=== PATIENT | male | born 1940 | race Caucasian/White ===

== ENCOUNTER 2019-03-24 14:40 | Inpatient (IN) | payer MEDICARE ==
[2019-03-24] MEDS ORDERED: Acetaminophen 325 MG TAB PO PRN (17:11)
[2019-03-24 19:40] LABS: Hemoglobin 14.2 g/dL (14.0-18.0); Platelet Count 307 thou/uL (130-400)
[2019-03-24] MEDS: Famotidine 20 MG TAB PO SCH (21:44)
[2019-03-24] MEDS: Isosorbide Mononitrate 20 MG TAB PO SCH (21:44)
[2019-03-25 05:58] LABS: Hemoglobin 14.1 g/dL (14.0-18.0); Platelet Count 320 thou/uL (130-400)
[2019-03-25 06:01] LABS: INR-International Normal Ratio 2.1; Prothrombin Time 23.4 SEC (12.0-14.7)
[2019-03-25] MEDS: Lisinopril 20 MG TAB PO SCH (09:09)
[2019-03-25] MEDS: Senokot S 8.6-50 MG TAB PO SCH (09:09)
[2019-03-25] MEDS: Folic Acid 1 MG TAB PO SCH (09:09)
[2019-03-25] MEDS: Cyanocobalamin (Vitamin B-12) 1,000 MCG TAB PO SCH (09:09)
[2019-03-25] MEDS: Isosorbide Mononitrate 20 MG TAB PO SCH ×2 (09:10→20:31)
[2019-03-25] MEDS: Famotidine 20 MG TAB PO SCH ×2 (09:11→20:31)
[2019-03-25] MEDS: Warfarin Sodium 7.5 MG TAB PO SCH (18:19)
[2019-03-26 06:08] LABS: INR-International Normal Ratio 2.1; Prothrombin Time 23.4 SEC (12.0-14.7)
[2019-03-26] MEDS: Isosorbide Mononitrate 20 MG TAB PO SCH ×2 (09:17→21:12)
[2019-03-26] MEDS: Folic Acid 1 MG TAB PO SCH (09:18)
[2019-03-26] MEDS: Cyanocobalamin (Vitamin B-12) 1,000 MCG TAB PO SCH (09:18)
[2019-03-26] MEDS: Lisinopril 20 MG TAB PO SCH (09:18)
[2019-03-26] MEDS: Senokot S 8.6-50 MG TAB PO SCH (09:18)
[2019-03-26] MEDS: Famotidine 20 MG TAB PO SCH ×2 (09:18→21:13)
[2019-03-26] MEDS: Warfarin Sodium 7.5 MG TAB PO SCH (17:02)
[2019-03-27 05:52] LABS: Hemoglobin 15.3 g/dL (14.0-18.0); Platelet Count 362 thou/uL (130-400)
[2019-03-27 05:53] LABS: INR-International Normal Ratio 2.4; Prothrombin Time 25.8 SEC (12.0-14.7)
[2019-03-27] MEDS: Isosorbide Mononitrate 20 MG TAB PO SCH ×2 (08:50→20:31)
[2019-03-27] MEDS: Lisinopril 20 MG TAB PO SCH (08:51)
[2019-03-27] MEDS: Folic Acid 1 MG TAB PO SCH (08:51)
[2019-03-27] MEDS: Cyanocobalamin (Vitamin B-12) 1,000 MCG TAB PO SCH (08:51)
[2019-03-27] MEDS: Senokot S 8.6-50 MG TAB PO SCH (08:52)
[2019-03-27] MEDS: Famotidine 20 MG TAB PO SCH ×2 (08:52→20:31)
[2019-03-27] MEDS: Warfarin Sodium 5 MG TAB PO SCH (17:04)
[2019-03-28 06:35] LABS: #Basophils 0.1 thou/uL (0.0-0.2); #Eosinphils 0.7 thou/uL (0.0-0.7); #Lymphocytes 2.2 thou/uL (1.20-3.40); #Monocytes 0.8 thou/uL (0.11-0.59); #Neutrophils 6.2 thou/uL (1.40-6.50); %Basophils 1.1 % (0.0-1.0); %Eosinophils 7.1 % (0.0-10.0); %Lymphocytes 22.2 % (21.0-51.0); %Monocytes 7.9 % (0.0-10.0); %Neutrophils 61.7 % (42.0-75.0); Hemoglobin 14.3 g/dL (14.0-18.0); Mean Corpuscular HGB CONC 31.1 g/dL (32.0-36.0); Mean Corpuscular Hemoglobin 28.8 pg (27.0-31.0); Mean Corpuscular Volume 92.8 fL (78.0-98.0); Mean Platelet Volume 7.1 fL (7.4-10.4); Platelet Count 340 thou/uL (130-400); RBC Distribution Width 15.8 % (11.5-14.5); Red Blood Cell (RBC) Count 4.97 mill/uL (4.70-6.10); White Blood Cell (WBC) Count 10.1 thou/uL (4.8-10.8)
[2019-03-28 06:36] LABS: INR-International Normal Ratio 2.8; Prothrombin Time 29.5 SEC (12.0-14.7)
[2019-03-28] MEDS: Senokot S 8.6-50 MG TAB PO SCH (09:32)
[2019-03-28] MEDS: Lisinopril 20 MG TAB PO SCH (09:32)
[2019-03-28] MEDS: Isosorbide Mononitrate 20 MG TAB PO SCH ×2 (09:32→21:01)
[2019-03-28] MEDS: Famotidine 20 MG TAB PO SCH ×2 (09:33→21:01)
[2019-03-28] MEDS: Cyanocobalamin (Vitamin B-12) 1,000 MCG TAB PO SCH (09:33)
[2019-03-28] MEDS: Folic Acid 1 MG TAB PO SCH (09:34)
[2019-03-28] MEDS: Warfarin Sodium 5 MG TAB PO SCH (18:39)
[2019-03-29 05:45] LABS: Hemoglobin 13.6 g/dL (14.0-18.0); Platelet Count 276 thou/uL (130-400)
[2019-03-29 05:49] LABS: INR-International Normal Ratio 3.1; Prothrombin Time 31.4 SEC (12.0-14.7)
[2019-03-29 05:51] LABS: Anion Gap 15 mmol/L (10-20); BUN (Urea Nitrogen) 17 mg/dL (8.4-25.7); Calc. Creatinine Clearance 95 mL/min (70-130); Calcium 9.2 mg/dL (7.8-10.44); Carbon Dioxide 26 mmol/L (23-31); Chloride 103 mmol/L (98-107); Estimated GFR-MDRD 85; Glucose 111 mg/dL (83-110); Potassium 4.4 mmol/L (3.5-5.1); Sodium 140 mmol/L (136-145)
[2019-03-29] MEDS: Isosorbide Mononitrate 20 MG TAB PO SCH ×2 (08:46→21:40)
[2019-03-29] MEDS: Lisinopril 20 MG TAB PO SCH (08:47)
[2019-03-29] MEDS: Folic Acid 1 MG TAB PO SCH (08:47)
[2019-03-29] MEDS: Senokot S 8.6-50 MG TAB PO SCH (08:47)
[2019-03-29] MEDS: Famotidine 20 MG TAB PO SCH ×2 (08:47→21:40)
[2019-03-29] MEDS: Cyanocobalamin (Vitamin B-12) 1,000 MCG TAB PO SCH (08:48)
[2019-03-30 05:47] LABS: INR-International Normal Ratio 3.2; Prothrombin Time 32.1 SEC (12.0-14.7)
[2019-03-30] MEDS: Folic Acid 1 MG TAB PO SCH (09:14)
[2019-03-30] MEDS: Isosorbide Mononitrate 20 MG TAB PO SCH ×2 (09:14→21:43)
[2019-03-30] MEDS: Lisinopril 20 MG TAB PO SCH (09:15)
[2019-03-30] MEDS: Famotidine 20 MG TAB PO SCH ×2 (09:15→21:43)
[2019-03-30] MEDS: Cyanocobalamin (Vitamin B-12) 1,000 MCG TAB PO SCH (09:16)
[2019-03-30] MEDS: Senokot S 8.6-50 MG TAB PO SCH (09:16)
[2019-03-30] MEDS ORDERED: Warfarin Sodium 5 MG TAB PO SCH (17:00)
[2019-03-31 04:23] LABS: Hemoglobin 14.2 g/dL (14.0-18.0); Platelet Count 317 thou/uL (130-400)
[2019-03-31 04:27] LABS: INR-International Normal Ratio 2.5; Prothrombin Time 26.7 SEC (12.0-14.7)
[2019-03-31] MEDS: Senokot S 8.6-50 MG TAB PO SCH (07:44)
[2019-03-31] MEDS: Cyanocobalamin (Vitamin B-12) 1,000 MCG TAB PO SCH (07:45)
[2019-03-31] MEDS: Folic Acid 1 MG TAB PO SCH (07:45)
[2019-03-31] MEDS: Lisinopril 20 MG TAB PO SCH (07:45)
[2019-03-31] MEDS: Isosorbide Mononitrate 20 MG TAB PO SCH ×2 (07:46→20:35)
[2019-03-31] MEDS: Famotidine 20 MG TAB PO SCH ×2 (07:47→20:35)
[2019-03-31] MEDS: Warfarin Sodium 5 MG TAB PO SCH ×3 (17:16→17:56)
[2019-03-31] MEDS: VASCEPA PO SCH (20:36)
[2019-04-01 04:35] LABS: INR-International Normal Ratio 2.2; Prothrombin Time 24.5 SEC (12.0-14.7)
[2019-04-01] MEDS: Isosorbide Mononitrate 20 MG TAB PO SCH ×2 (08:53→21:50)
[2019-04-01] MEDS: Folic Acid 1 MG TAB PO SCH (08:54)
[2019-04-01] MEDS: Senokot S 8.6-50 MG TAB PO SCH (08:54)
[2019-04-01] MEDS: Famotidine 20 MG TAB PO SCH ×2 (08:54→21:51)
[2019-04-01] MEDS: Lisinopril 20 MG TAB PO SCH (08:54)
[2019-04-01] MEDS: Cyanocobalamin (Vitamin B-12) 1,000 MCG TAB PO SCH (08:54)
[2019-04-01] MEDS: Warfarin Sodium 5 MG TAB PO SCH (16:30)
[2019-04-01] MEDS: VASCEPA PO SCH (21:51)
[2019-04-02 04:58] LABS: Hemoglobin 12.9 g/dL (14.0-18.0); Platelet Count 326 thou/uL (130-400)
[2019-04-02 05:03] LABS: INR-International Normal Ratio 2.4; Prothrombin Time 26.2 SEC (12.0-14.7)
[2019-04-02] MEDS: Folic Acid 1 MG TAB PO SCH (08:47)
[2019-04-02] MEDS: Cyanocobalamin (Vitamin B-12) 1,000 MCG TAB PO SCH (08:48)
[2019-04-02] MEDS: Isosorbide Mononitrate 20 MG TAB PO SCH ×2 (08:48→21:20)
[2019-04-02] MEDS: Senokot S 8.6-50 MG TAB PO SCH (08:49)
[2019-04-02] MEDS: Lisinopril 20 MG TAB PO SCH (08:49)
[2019-04-02] MEDS: Famotidine 20 MG TAB PO SCH ×2 (08:49→21:20)
[2019-04-02] MEDS: VASCEPA PO SCH ×2 (08:51→21:21)
[2019-04-02] MEDS: Warfarin Sodium 5 MG TAB PO SCH (16:46)
[2019-04-03] MEDS: Senokot S 8.6-50 MG TAB PO SCH (09:03)
[2019-04-03] MEDS: VASCEPA PO SCH ×2 (09:03→21:23)
[2019-04-03] MEDS: Cyanocobalamin (Vitamin B-12) 1,000 MCG TAB PO SCH (09:04)
[2019-04-03] MEDS: Folic Acid 1 MG TAB PO SCH (09:04)
[2019-04-03] MEDS: Isosorbide Mononitrate 20 MG TAB PO SCH ×2 (09:04→21:23)
[2019-04-03] MEDS: Lisinopril 20 MG TAB PO SCH (09:04)
[2019-04-03] MEDS: Famotidine 20 MG TAB PO SCH ×2 (09:06→21:23)
[2019-04-03] MEDS: Warfarin Sodium 5 MG TAB PO SCH (17:45)
[2019-04-04 04:41] LABS: Platelet Count 314 thou/uL (130-400)
[2019-04-04 04:42] LABS: INR-International Normal Ratio 2.5
[2019-04-04] MEDS: Isosorbide Mononitrate 20 MG TAB PO SCH ×2 (09:05→21:34)
[2019-04-04] MEDS: Senokot S 8.6-50 MG TAB PO SCH (09:06)
[2019-04-04] MEDS: Folic Acid 1 MG TAB PO SCH (09:07)
[2019-04-04] MEDS: Lisinopril 20 MG TAB PO SCH (09:07)
[2019-04-04] MEDS: Famotidine 20 MG TAB PO SCH ×2 (09:07→21:34)
[2019-04-04] MEDS: Cyanocobalamin (Vitamin B-12) 1,000 MCG TAB PO SCH (09:08)
[2019-04-04] MEDS: VASCEPA PO SCH ×2 (09:10→21:34)
[2019-04-04] MEDS: Warfarin Sodium 5 MG TAB PO SCH (16:42)
[2019-04-05 04:46] LABS: INR-International Normal Ratio 2.7; Prothrombin Time 28.5 SEC (12.0-14.7)
[2019-04-05 04:52] LABS: Anion Gap 13 mmol/L (10-20); BUN (Urea Nitrogen) 14 mg/dL (8.4-25.7); Calc. Creatinine Clearance 98 mL/min (70-130); Calcium 8.9 mg/dL (7.8-10.44); Carbon Dioxide 27 mmol/L (23-31); Chloride 101 mmol/L (98-107); Estimated GFR-MDRD 86; Glucose 114 mg/dL (83-110); Potassium 4.5 mmol/L (3.5-5.1); Sodium 136 mmol/L (136-145)
[2019-04-05] MEDS: Folic Acid 1 MG TAB PO SCH (09:19)
[2019-04-05] MEDS: Cyanocobalamin (Vitamin B-12) 1,000 MCG TAB PO SCH (09:19)
[2019-04-05] MEDS: Lisinopril 20 MG TAB PO SCH (09:20)
[2019-04-05] MEDS: Senokot S 8.6-50 MG TAB PO SCH (09:20)
[2019-04-05] MEDS: Famotidine 20 MG TAB PO SCH ×2 (09:21→20:43)
[2019-04-05] MEDS: Isosorbide Mononitrate 20 MG TAB PO SCH ×2 (09:21→20:43)
[2019-04-05] MEDS: VASCEPA PO SCH ×2 (09:23→20:42)
[2019-04-05 10:04] VITALS: BMI 29.3
[2019-04-05] MEDS: Warfarin Sodium 5 MG TAB PO SCH (16:30)
[2019-04-06 05:42] LABS: Hemoglobin 13.1 g/dL (14.0-18.0); Platelet Count 348 thou/uL (130-400)
[2019-04-06] MEDS: Isosorbide Mononitrate 20 MG TAB PO SCH (08:41)
[2019-04-06] MEDS: Folic Acid 1 MG TAB PO SCH (08:42)
[2019-04-06] MEDS: Cyanocobalamin (Vitamin B-12) 1,000 MCG TAB PO SCH (08:42)
[2019-04-06] MEDS: Lisinopril 20 MG TAB PO SCH (08:42)
[2019-04-06] MEDS: Famotidine 20 MG TAB PO SCH (08:42)
[2019-04-06] MEDS: Senokot S 8.6-50 MG TAB PO SCH (08:42)
[2019-04-06] MEDS: VASCEPA PO SCH (08:45)
[2019-04-06 10:44] LABS: INR-International Normal Ratio 2.4; Prothrombin Time 27.3 SEC (12.0-14.7)
--- NOTE | 2019-04-06 13:37 | DIS ---
DATE OF ADMISSION: 03/24/2019 DATE OF DISCHARGE: 04/06/2019 ADMISSION DIAGNOSES: Physical deconditioning and sacral pressure ulcer. SECONDARY DIAGNOSES: Atrial fibrillation, chronic diastolic heart failure, hypertension, and vitamin B12 deficiency. PROCEDURES: Routine wound care and working with Physical Therapy and Occupational Therapy. HOSPITAL COURSE: A 79-year-old male transitioned to [facility] as a swing patient to participate with physical therapy and occupational therapy and receive wound care status post admission at [facility] in [place], where he presented and was treated for toxic metabolic encephalopathy, rhabdomyolysis, and sacral pressure ulcer after he had been down at home in his bathtub for approximately 24 hours. Apparently, the patient had been too weak to get out of his bathtub and fortunately some religious members came to check on him and called EMS for further care. The patient had been without his medications for approximately 24 hours and thus he was notably tachycardic in relation to his history of a chronic atrial fibrillation. He was initially provided with a Cardizem drip and transitioned thereafter to his usual p.o. medications. He received intravenous fluids to correct his rhabdomyolysis. After stabilization, he was transitioned here for further PT, OT and wound care. During his stay here, he had no significant setbacks. His wound has steadily improved as has his functional status in regard to his physical deconditioning. His vital signs and lab work have all been stable. He has met the goals set by PT and OT to be able to return home at this time with further transition of care to be provided by [facility]. During his stay, it was noted that he did have some mild sundowning overnight and urinary incontinence. Secondary to this and his living alone, he was offered to transition to a longterm facility. However, he declined this option. DISPOSITION: The patient will discharge home where he does live alone, but has looked after by community members. He will have [facility] for further PT and wound therapy. He may follow up with his primary care provider, Steffany Grant PA-C, next week. DISCHARGE MEDICATIONS: 1. Vitamin B12 1000 mcg p.o. daily. 2. Tylenol p.r.n. 3. Isosorbide mononitrate 10 mg b.i.d. 4. Folic acid 1 mg daily. 5. Senokot/docusate one tab daily. 6. Lisinopril 20 mg daily. 7. Coumadin 5 mg Wednesday through Wednesday, 7.5 mg Wednesday and Wednesday. 8. CPAP as directed per his tractor sweeper operator, Dr. Fraire. Job ID: [id number]
[2019-04-06 17:15] VITALS: BP 114/67; TEMP 98.1
== END 2019-04-06 17:30 | disposition home health service (06) | DRG 558 ==
LOC: BURMED 14:40
PROVIDERS: ADMIT Family Medicine; ATTEND Family Medicine
DX: M62.82 Rhabdomyolysis (principal); I50.32 Chronic diastolic (congestive) heart failure; F05 Delirium due to known physiological condition; R53.81 Other malaise; L89.159 Pressure ulcer of sacral region, unspecified stage; I11.0 Hypertensive heart disease with heart failure; E53.8 Deficiency of other specified B group vitamins; I48.2 Chronic atrial fibrillation; F17.210 Nicotine dependence, cigarettes, uncomplicated; R32 Unspecified urinary incontinence; Z90.49 Acquired absence of other specified parts of digestive tract; Z90.89 Acquired absence of other organs; Z88.0 Allergy status to penicillin; Z79.01 Long term (current) use of anticoagulants
CPT/HCPCS: 36415; 80048; 85014; 85018; 85025; 85049; 85610

== ENCOUNTER 2019-04-28 15:50 | Inpatient (IN) | payer MEDICARE ==
[2019-04-28] MEDS: Famotidine 20 MG TAB PO SCH (22:31)
[2019-04-28] MEDS: Lisinopril 20 MG TAB PO SCH (22:31)
[2019-04-28] MEDS: Simvastatin 40 MG TAB PO SCH (22:31)
[2019-04-29] MEDS ORDERED: Prevnar 13-Val Conj/PF 0.5 ML SYRINGE IM ONE (09:00)
[2019-04-29] MEDS: Aspirin Chewable 81 MG TAB PO SCH (09:46)
[2019-04-29] MEDS: Isosorbide Mononitrate (ER) 30 MG TAB PO SCH (09:47)
[2019-04-29] MEDS: Lisinopril 20 MG TAB PO SCH ×2 (09:47→21:34)
[2019-04-29] MEDS: Cyanocobalamin (Vitamin B-12) 1,000 MCG TAB PO SCH (09:47)
[2019-04-29] MEDS: Hydrochlorothiazide 25 MG TAB PO SCH (09:47)
[2019-04-29] MEDS: Famotidine 20 MG TAB PO SCH ×2 (09:48→21:34)
[2019-04-29] MEDS: Folic Acid 1 MG TAB PO SCH (09:50)
[2019-04-29] MEDS ORDERED: HYDROcodone/Acetaminophen 5/325 mg Tablet PO PRN (10:27)
[2019-04-29] MEDS ORDERED: HYDROcodone/Acetaminophen 10/325 mg Tablet PO PRN (10:28)
[2019-04-29] MEDS: Vancomycin HCl 750 MG in Sodium Chloride 0.9% 250 ML 250 ML IVPB SCH ×2 (12:47→12:53)
[2019-04-29] MEDS: Warfarin Sodium 5 MG TAB PO SCH (17:25)
[2019-04-29] MEDS: Simvastatin 40 MG TAB PO SCH (21:33)
[2019-04-29] MEDS: Saccharomyces boulardii 250 MG CAP PO SCH (21:33)
[2019-04-30 07:09] LABS: INR-International Normal Ratio 1.2; Prothrombin Time 15.1 SEC (12.0-14.7)
[2019-04-30] MEDS: Famotidine 20 MG TAB PO SCH ×2 (09:38→20:21)
[2019-04-30] MEDS: Hydrochlorothiazide 25 MG TAB PO SCH (09:38)
[2019-04-30] MEDS: Lisinopril 20 MG TAB PO SCH ×2 (09:38→20:20)
[2019-04-30] MEDS: Isosorbide Mononitrate (ER) 30 MG TAB PO SCH (09:39)
[2019-04-30] MEDS: Folic Acid 1 MG TAB PO SCH (09:39)
[2019-04-30] MEDS: Aspirin Chewable 81 MG TAB PO SCH (09:39)
[2019-04-30] MEDS: Cyanocobalamin (Vitamin B-12) 1,000 MCG TAB PO SCH (09:39)
[2019-04-30] MEDS: Saccharomyces boulardii 250 MG CAP PO SCH ×2 (09:39→20:21)
[2019-04-30] MEDS: Vancomycin HCl 750 MG in Sodium Chloride 0.9% 250 ML 250 ML IVPB SCH ×2 (11:36→11:38)
[2019-04-30] MEDS: Warfarin Sodium 5 MG TAB PO SCH (17:11)
[2019-04-30] MEDS ORDERED: Warfarin Sodium 5 MG TAB PO SCH (19:00)
[2019-04-30] MEDS: Simvastatin 40 MG TAB PO SCH (20:21)
[2019-05-01 05:16] LABS: INR-International Normal Ratio 1.1; Prothrombin Time 14.4 SEC (12.0-14.7)
[2019-05-01] MEDS: Famotidine 20 MG TAB PO SCH ×2 (09:25→20:20)
[2019-05-01] MEDS: Folic Acid 1 MG TAB PO SCH (09:25)
[2019-05-01] MEDS: Docusate 100 MG CAP PO PRN (09:26)
[2019-05-01] MEDS: Isosorbide Mononitrate (ER) 30 MG TAB PO SCH (09:26)
[2019-05-01] MEDS: Saccharomyces boulardii 250 MG CAP PO SCH ×2 (09:26→20:20)
[2019-05-01] MEDS: Lisinopril 20 MG TAB PO SCH ×2 (09:26→20:21)
[2019-05-01] MEDS: Hydrochlorothiazide 25 MG TAB PO SCH (09:26)
[2019-05-01] MEDS: Cyanocobalamin (Vitamin B-12) 1,000 MCG TAB PO SCH (09:26)
[2019-05-01] MEDS: Aspirin Chewable 81 MG TAB PO SCH (09:26)
[2019-05-01 11:37] LABS: Vancomycin, Trough 18.4 ug/mL
[2019-05-01] MEDS: Vancomycin HCl 750 MG in Sodium Chloride 0.9% 250 ML 250 ML IVPB SCH ×2 (11:48→11:49)
[2019-05-01] MEDS ORDERED: Warfarin Sodium 2.5 MG TAB PO SCH (17:00)
[2019-05-01] MEDS: Warfarin Sodium 5 MG TAB PO SCH (17:03)
[2019-05-01] MEDS: Simvastatin 40 MG TAB PO SCH (20:20)
[2019-05-02 05:46] LABS: INR-International Normal Ratio 1.4; Prothrombin Time 17.3 SEC (12.0-14.7)
[2019-05-02] MEDS: Isosorbide Mononitrate (ER) 30 MG TAB PO SCH (08:58)
[2019-05-02] MEDS: Famotidine 20 MG TAB PO SCH ×2 (08:59→20:36)
[2019-05-02] MEDS: Hydrochlorothiazide 25 MG TAB PO SCH (08:59)
[2019-05-02] MEDS: Cyanocobalamin (Vitamin B-12) 1,000 MCG TAB PO SCH (08:59)
[2019-05-02] MEDS: Aspirin Chewable 81 MG TAB PO SCH (08:59)
[2019-05-02] MEDS: Saccharomyces boulardii 250 MG CAP PO SCH ×2 (08:59→20:36)
[2019-05-02] MEDS: Folic Acid 1 MG TAB PO SCH (08:59)
[2019-05-02] MEDS: Lisinopril 20 MG TAB PO SCH ×2 (08:59→20:37)
[2019-05-02] MEDS: Vancomycin HCl 750 MG in Sodium Chloride 0.9% 250 ML 250 ML IVPB SCH (11:37)
[2019-05-02] MEDS ORDERED: Pharmacy to Dose 1 EACH VANCOMYCIN IVPB PRN (14:40)
[2019-05-02] MEDS: Warfarin Sodium 5 MG TAB PO SCH (17:11)
[2019-05-02] MEDS: Simvastatin 40 MG TAB PO SCH (20:37)
[2019-05-02] MEDS ORDERED: Acetaminophen 325 MG TAB PO PRN (21:59)
[2019-05-03 05:21] LABS: ALT (SGPT) 18 U/L (8-55); AST (SGOT) 26 U/L (5-34); Albumin 3.3 g/dL (3.4-4.8); Alkaline Phosphatase 76 U/L (40-150); Anion Gap 15 mmol/L (10-20); BUN (Urea Nitrogen) 27 mg/dL (8.4-25.7); Bilirubin, Total Less than 0.2 mg/dL (0.2-1.2); Calc. Creatinine Clearance 94 mL/min (70-130); Calcium 9.5 mg/dL (7.8-10.44); Carbon Dioxide 26 mmol/L (23-31); Chloride 99 mmol/L (98-107); Estimated GFR-MDRD 87; Globulin 4.5 g/dL (2.4-3.5); Glucose 101 mg/dL (83-110); INR-International Normal Ratio 1.8; Potassium 3.9 mmol/L (3.5-5.1); Protein, Total 7.8 g/dL (5.8-8.1); Prothrombin Time 20.5 SEC (12.0-14.7); Sodium 136 mmol/L (136-145)
[2019-05-03 06:06] LABS: Anisocytosis SLIGHT = 6-15 cells (100X) (0-5/hpf); Band 3 % (5-11); Eosinophils 3 % (0-10); Hemoglobin 14.5 g/dL (14.0-18.0); Lymphocytes 24 % (21-51); MDiff Complete? YES; Mean Corpuscular HGB CONC 32.4 g/dL (32.0-36.0); Mean Corpuscular Hemoglobin 28.8 pg (27.0-31.0); Mean Corpuscular Volume 88.8 fL (78.0-98.0); Mean Platelet Volume 6.7 fL (7.4-10.4); Monocytes 6 % (0-10); Neutrophil 64 % (42-75); Platelet Count 350 thou/uL (130-400); Platelet Morphology Comment Appears Adequate; RBC Distribution Width 15.1 % (11.5-14.5); Red Blood Cell (RBC) Count 5.05 mill/uL (4.70-6.10); White Blood Cell (WBC) Count 12.1 thou/uL (4.8-10.8)
[2019-05-03 06:25] LABS: CRP (Inflammatory) 0.86 mg/dL (= or < 0.5)
[2019-05-03] MEDS: Lisinopril 20 MG TAB PO SCH ×2 (08:30→20:48)
[2019-05-03] MEDS: Folic Acid 1 MG TAB PO SCH (08:31)
[2019-05-03] MEDS: Hydrochlorothiazide 25 MG TAB PO SCH (08:31)
[2019-05-03] MEDS: Saccharomyces boulardii 250 MG CAP PO SCH ×2 (08:31→20:47)
[2019-05-03] MEDS: Isosorbide Mononitrate (ER) 30 MG TAB PO SCH (08:32)
[2019-05-03] MEDS: Cyanocobalamin (Vitamin B-12) 1,000 MCG TAB PO SCH (08:32)
[2019-05-03] MEDS: Aspirin Chewable 81 MG TAB PO SCH (08:32)
[2019-05-03] MEDS: Famotidine 20 MG TAB PO SCH ×2 (08:32→20:47)
[2019-05-03] MEDS: Vancomycin HCl 750 MG in Sodium Chloride 0.9% 250 ML 250 ML IVPB SCH (12:25)
[2019-05-03] MEDS: Warfarin Sodium 5 MG TAB PO SCH (17:33)
[2019-05-03] MEDS: Simvastatin 40 MG TAB PO SCH (20:48)
[2019-05-04 06:04] LABS: Prothrombin Time 22.5 SEC (12.0-14.7)
[2019-05-04] MEDS: Saccharomyces boulardii 250 MG CAP PO SCH ×2 (09:14→21:00)
[2019-05-04] MEDS: Hydrochlorothiazide 25 MG TAB PO SCH (09:14)
[2019-05-04] MEDS: Aspirin Chewable 81 MG TAB PO SCH (09:14)
[2019-05-04] MEDS: Isosorbide Mononitrate (ER) 30 MG TAB PO SCH (09:15)
[2019-05-04] MEDS: Lisinopril 20 MG TAB PO SCH ×2 (09:15→21:00)
[2019-05-04] MEDS: Folic Acid 1 MG TAB PO SCH (09:15)
[2019-05-04] MEDS: Famotidine 20 MG TAB PO SCH ×2 (09:16→21:02)
[2019-05-04] MEDS: Cyanocobalamin (Vitamin B-12) 1,000 MCG TAB PO SCH (09:16)
[2019-05-04 11:31] LABS: Vancomycin, Trough 20.2 ug/mL
[2019-05-04] MEDS: Vancomycin HCl 750 MG in Sodium Chloride 0.9% 250 ML 250 ML IVPB SCH ×2 (13:02→13:03)
[2019-05-04] MEDS: Warfarin Sodium 5 MG TAB PO SCH (17:19)
[2019-05-04] MEDS: Simvastatin 40 MG TAB PO SCH (21:01)
[2019-05-05 05:38] LABS: Hemoglobin 12.1 g/dL (14.0-18.0); Platelet Count 311 thou/uL (130-400)
[2019-05-05 05:41] LABS: INR-International Normal Ratio 2.4; Prothrombin Time 25.8 SEC (12.0-14.7)
[2019-05-05] MEDS: Isosorbide Mononitrate (ER) 30 MG TAB PO SCH (09:02)
[2019-05-05] MEDS: Lisinopril 20 MG TAB PO SCH ×2 (09:02→20:45)
[2019-05-05] MEDS: Folic Acid 1 MG TAB PO SCH (09:03)
[2019-05-05] MEDS: Hydrochlorothiazide 25 MG TAB PO SCH (09:03)
[2019-05-05] MEDS: Cyanocobalamin (Vitamin B-12) 1,000 MCG TAB PO SCH (09:03)
[2019-05-05] MEDS: Aspirin Chewable 81 MG TAB PO SCH (09:03)
[2019-05-05] MEDS: Saccharomyces boulardii 250 MG CAP PO SCH ×2 (09:04→20:44)
[2019-05-05] MEDS: Famotidine 20 MG TAB PO SCH ×2 (09:04→20:44)
[2019-05-05] MEDS: Vancomycin HCl 500 MG in Sodium Chloride 0.9% 250 ML 250 ML IVPB SCH (13:39)
[2019-05-05] MEDS: Vancomycin HCl 750 MG in Sodium Chloride 0.9% 250 ML 250 ML IVPB SCH (13:40)
[2019-05-05] MEDS: Warfarin Sodium 5 MG TAB PO SCH (16:52)
[2019-05-05] MEDS: Simvastatin 40 MG TAB PO SCH (20:44)
[2019-05-06 06:00] LABS: INR-International Normal Ratio 2.8; Prothrombin Time 29.1 SEC (12.0-14.7)
[2019-05-06] MEDS: Folic Acid 1 MG TAB PO SCH (08:36)
[2019-05-06] MEDS: Lisinopril 20 MG TAB PO SCH ×2 (08:36→20:39)
[2019-05-06] MEDS: Isosorbide Mononitrate (ER) 30 MG TAB PO SCH (08:43)
[2019-05-06] MEDS: Cyanocobalamin (Vitamin B-12) 1,000 MCG TAB PO SCH (08:43)
[2019-05-06] MEDS: Saccharomyces boulardii 250 MG CAP PO SCH ×2 (08:44→20:40)
[2019-05-06] MEDS: Aspirin Chewable 81 MG TAB PO SCH (08:44)
[2019-05-06] MEDS: Famotidine 20 MG TAB PO SCH ×2 (08:44→20:38)
[2019-05-06] MEDS: Hydrochlorothiazide 25 MG TAB PO SCH (08:44)
[2019-05-06 11:22] LABS: Vancomycin, Trough 15.3 ug/mL
[2019-05-06] MEDS: Vancomycin HCl 500 MG in Sodium Chloride 0.9% 250 ML 250 ML IVPB SCH (12:55)
[2019-05-06] MEDS: Vancomycin HCl 750 MG in Sodium Chloride 0.9% 250 ML 250 ML IVPB SCH (12:55)
[2019-05-06] MEDS: Warfarin Sodium 5 MG TAB PO SCH (19:18)
[2019-05-06] MEDS: Simvastatin 40 MG TAB PO SCH (20:40)
[2019-05-07 05:45] LABS: Hemoglobin 12.9 g/dL (14.0-18.0); Platelet Count 353 thou/uL (130-400)
[2019-05-07 05:46] LABS: INR-International Normal Ratio 2.6; Prothrombin Time 27.8 SEC (12.0-14.7)
[2019-05-07] MEDS: Lisinopril 20 MG TAB PO SCH ×2 (09:05→20:07)
[2019-05-07] MEDS: Aspirin Chewable 81 MG TAB PO SCH (09:05)
[2019-05-07] MEDS: Famotidine 20 MG TAB PO SCH ×2 (09:06→20:07)
[2019-05-07] MEDS: Hydrochlorothiazide 25 MG TAB PO SCH (09:06)
[2019-05-07] MEDS: Saccharomyces boulardii 250 MG CAP PO SCH ×2 (09:06→20:07)
[2019-05-07] MEDS: Isosorbide Mononitrate (ER) 30 MG TAB PO SCH (09:06)
[2019-05-07] MEDS: Folic Acid 1 MG TAB PO SCH (09:06)
[2019-05-07] MEDS: Cyanocobalamin (Vitamin B-12) 1,000 MCG TAB PO SCH (09:07)
[2019-05-07] MEDS: Vancomycin HCl 500 MG in Sodium Chloride 0.9% 250 ML 250 ML IVPB SCH (12:20)
[2019-05-07] MEDS: Vancomycin HCl 750 MG in Sodium Chloride 0.9% 250 ML 250 ML IVPB SCH (12:21)
[2019-05-07] MEDS: Warfarin Sodium 5 MG TAB PO SCH (16:50)
--- NOTE | 2019-05-07 18:32 | HP ---
PRIMARY CARE PHYSICIAN: Dr. Alberto. CHIEF COMPLAINT: Admitted for skilled rehab with negative pressure wound therapy for MRSA sacral decubitus ulcer stage IV, occupational and physical therapy to address physical deconditioning. HISTORY OF PRESENT ILLNESS: The patient's condition started back several months ago when he started having issues with gait and range of motion. Back in March, the patient apparently was found unresponsive in his bathtub by his anglican members apparently he was there for more than 24 hours. EMS was summoned and noticed that he was in atrial fibrillation. At the hospital, he was given Cardizem, his labs showed elevated creatine kinase. He was admitted for rhabdomyolysis, chronic atrial fibrillation with rapid ventricular rate and sepsis secondary to elevated white count and lactic acid. He was given IV antibiotics and fluid resuscitation. He was seen by Cardiology for bradycardia. He was also treated for CHF with volume overload. He was also treated for sacral pressure and subsequently transferred to [facility] for skilled rehab. During his stay, he participated with physical, occupational, and wound therapy. He was discharged home with [facility] on April 06, 2019. According to the patient, over several days, the patient's condition deteriorated, describes progressive weakness, his wound was not healing per [facility] nurse and noticed purulent discharge coming out from the wound. He was advised admission. He was admitted to medical floor with diagnosis of infected sacral decubitus ulcer stage IV on 04/20/2019. Dr. Regan was consulted for infected sacral decubitus wound. He was placed on vancomycin, Cipro and Flagyl. The patient received gentle hydration. He was also referred for wound care therapy. The patient subsequently underwent debridement of sacral decubitus wound that measured about 10 x 10 cm on April 25. His wound grew MRSA and Enterococcus faecalis. His CT of the pelvis showed large sacral decubitus ulcer, reaching close to the periosteal surface, no evidence of osteomyelitis was seen. The patient was also seen by infectious specialist, Dr. Moran. He subsequently had a PICC line and was advised four weeks of IV vancomycin. His sacral decubitus ulcers are stage IV, full-thickness with serosanguineous drainage, with visible tendon, fascia, and muscles. Wound is measuring about 10.7 x 10.1 x 10.6. His wound bed has red granulation of about 80%. He was receiving wound care and placed on wound VAC prior to his transfer to [facility]. PAST MEDICAL HISTORY: 1. Chronic atrial fibrillation. 2. Hypertension. 3. Dyslipidemia. 4. History of CHF. 5. Gait instability. PAST SURGICAL HISTORY: 1. Circumcision. 2. Adenoidectomy. 3. Cholecystectomy. 4. Tonsillectomy. 5. History of bleeding polyps removed from large intestine. MEDICATIONS: 1. Tylenol 650 every 4 hours. 2. Hydrocodone 5/325 one tab every 4 hours for moderate pain. 3. Hydrocodone 10 mg one tablet every 6 hours for severe pain. 4. Aspirin 81 mg daily. 5. Vitamin B12 1000 mcg daily. 6. Colace 100 mg daily p.r.n. for constipation. 7. Pepcid 20 mg b.i.d. 8. Folic acid 1 mg daily. 9. Hydrochlorothiazide 25 mg daily. 10. Imdur 30 mg daily. 11. Lisinopril 40 mg b.i.d. 12. Metoprolol 100 mg XL one tablet daily. 13. Florastor 250 mg b.i.d. 14. Simvastatin 80 mg at bedtime. 15. Vancomycin daily. 16. Coumadin 5 mg daily. ALLERGIES: PENICILLIN. PERSONAL AND SOCIAL HISTORY: The patient denies alcohol or tobacco use. The patient lives alone in [place], [place]. He has anglican friends that offers home supplies that he needs. He is a retired insurance marketing specialist. He has [facility] that includes wound care and nursing that assists with his medication and wound. FAMILY HISTORY: The patient has a sister that lives in [place]. Brother is essentially bedridden from advanced Parkinson disease and under hospice. The patient has no children. CODE STATUS: Full code. POWER OF PRE CERTIFICATION SPECIALIST: His sister, Ms. Mitchell or nephew named, Stevie. REVIEW OF SYSTEMS: CONSTITUTIONAL: Negative for fever. Negative for chills. Negative for weight loss or gain. Positive for fatigue. SKIN: See HPI. EYES: Positive for blurred vision. Negative for pain. EAR, NOSE, THROAT, MOUTH: Negative for nose bleeding. Negative for neck stiffness. Negative for sore throat. CARDIOVASCULAR: Negative for palpitation or dyspnea. Negative for cyanosis. RESPIRATORY: Negative for shortness of breath, wheezing, or cough. GASTROINTESTINAL: Positive for decreased appetite. Negative for abdominal pain. Positive for constipation. GENITOURINARY: Negative for urgency, frequency, dysuria, nocturia. MUSCULOSKELETAL: Positive for weakness on both upper and lower extremities secondary to deconditioning. NEUROPSYCH: Negative for anxiety or depression. ALLERGY: Negative for skin rash or bleeding tendencies. PHYSICAL EXAMINATION: GENERAL: The patient is alert, oriented, not in respiratory distress. VITAL SIGNS: Blood pressure 123/79, pulse of 66, temperature 97.7, heart rate of 18, and O2 saturation 96% on room air. NECK: Supple. Negative for JVD. HEENT: Normocephalic, atraumatic. Pupils equal, reactive to light. Negative for tonsillopharyngeal congestion. CARDIOVASCULAR: S1, S2 heard. Normal rate and rhythm. RESPIRATORY: Symmetrical expansion. Clear to auscultation bilaterally. ABDOMEN: Flat, soft, nontender. Normoactive bowel sounds. EXTREMITIES: Positive for grade +1 edema, pitting. No calf tenderness. VASCULAR: Peripheral pulses +1 bilateral. No ischemic ulcerations or gangrene. CENTRAL NERVOUS SYSTEM: No focal deficits. PSYCH: Appropriate affect and demeanor. SKIN: Positive for grade 4 sacral ulcer measuring about 11 x 10.6 x 6.4 with no tunneling, no undermining wound bed with red granulation, with foul drainage noted. Left shoulder pressure ulcer stage III with minimal serosanguineous drainage and approximated with blanchable erythema around the area is granulated with granulation. LABORATORY DATA: Reviewed. ASSESSMENT: 1. Methicillin-resistant Staphylococcus aureus stage IV decubitus ulcer, status post surgical debridement on wound VAC. 2. Ischemic cardiomyopathy. 3. Chronic atrial fibrillation, rate controlled. 4. Hypertension. 5. Congestive heart failure. 6. Gait instability. 7. History of rhabdomyolysis. 8. Elderly, living alone. PLAN: The patient admitted for skilled with negative pressure wound therapy of MRSA sacral decubitus ulcer stage IV, occupation, physical therapy to address physical deconditioning. Prognosis for significant improvement with reasonable time appears fair due to patient's multiple comorbid condition. He will participate with PT to address strength, range of motion, transfer training, gait transfer, and family training and safety training with progression to home exercises. He will participate with OT to address ADLs. We will reconcile home medication and adjust dosages prior to his discharge. fire safety manager to address how the patient can be safely discharged in a timely manner. Anticipate discharge to home in 4 to 6 weeks after completion of IV vancomycin. Job ID: [id number]
[2019-05-07] MEDS: Simvastatin 40 MG TAB PO SCH (20:08)
[2019-05-08 06:06] LABS: INR-International Normal Ratio 3.1; Prothrombin Time 31.5 SEC (12.0-14.7)
[2019-05-08] MEDS: Lisinopril 20 MG TAB PO SCH ×2 (09:15→20:31)
[2019-05-08] MEDS: Cyanocobalamin (Vitamin B-12) 1,000 MCG TAB PO SCH (09:16)
[2019-05-08] MEDS: Famotidine 20 MG TAB PO SCH ×2 (09:16→20:30)
[2019-05-08] MEDS: Isosorbide Mononitrate (ER) 30 MG TAB PO SCH (09:17)
[2019-05-08] MEDS: Hydrochlorothiazide 25 MG TAB PO SCH (09:17)
[2019-05-08] MEDS: Folic Acid 1 MG TAB PO SCH (09:17)
[2019-05-08] MEDS: Aspirin Chewable 81 MG TAB PO SCH (09:17)
[2019-05-08] MEDS: Saccharomyces boulardii 250 MG CAP PO SCH ×2 (09:17→20:30)
[2019-05-08] MEDS: Vancomycin HCl 500 MG in Sodium Chloride 0.9% 250 ML 250 ML IVPB SCH (12:10)
[2019-05-08] MEDS: Vancomycin HCl 750 MG in Sodium Chloride 0.9% 250 ML 250 ML IVPB SCH (12:10)
[2019-05-08] MEDS: Warfarin Sodium 5 MG TAB PO SCH (17:33)
[2019-05-08] MEDS: Simvastatin 40 MG TAB PO SCH (20:31)
[2019-05-09 05:40] LABS: Platelet Count 337 thou/uL (130-400)
[2019-05-09 05:43] LABS: INR-International Normal Ratio 3.4
[2019-05-09] MEDS: Saccharomyces boulardii 250 MG CAP PO SCH ×2 (09:03→20:08)
[2019-05-09] MEDS: Isosorbide Mononitrate (ER) 30 MG TAB PO SCH (09:03)
[2019-05-09] MEDS: Hydrochlorothiazide 25 MG TAB PO SCH (09:03)
[2019-05-09] MEDS: Famotidine 20 MG TAB PO SCH ×2 (09:03→20:08)
[2019-05-09] MEDS: Aspirin Chewable 81 MG TAB PO SCH (09:04)
[2019-05-09] MEDS: Cyanocobalamin (Vitamin B-12) 1,000 MCG TAB PO SCH (09:04)
[2019-05-09] MEDS: Lisinopril 20 MG TAB PO SCH ×2 (09:04→20:08)
[2019-05-09] MEDS: Folic Acid 1 MG TAB PO SCH (09:05)
[2019-05-09] MEDS: Nystatin Powder 15 GM BOT TOP PRN (09:05)
[2019-05-09] MEDS ORDERED: HYDROcodone/Acetaminophen 5/325 mg Tablet PO PRN (11:59)
[2019-05-09] MEDS ORDERED: HYDROcodone/Acetaminophen 10/325 mg Tablet PO PRN (11:59)
[2019-05-09 12:14] LABS: Vancomycin, Trough 15.5 ug/mL
[2019-05-09] MEDS: Vancomycin HCl 750 MG in Sodium Chloride 0.9% 250 ML 250 ML IVPB SCH (13:06)
[2019-05-09] MEDS: Vancomycin HCl 500 MG in Sodium Chloride 0.9% 250 ML 250 ML IVPB SCH (13:07)
[2019-05-09] MEDS: Simvastatin 40 MG TAB PO SCH (20:08)
[2019-05-10 05:24] LABS: INR-International Normal Ratio 3.2; Prothrombin Time 32.4 SEC (12.0-14.7)
[2019-05-10 05:28] LABS: #Basophils 0.1 thou/uL (0.0-0.2); #Eosinphils 0.7 thou/uL (0.0-0.7); #Lymphocytes 2.4 thou/uL (1.20-3.40); #Monocytes 0.6 thou/uL (0.11-0.59); #Neutrophils 5.9 thou/uL (1.40-6.50); %Basophils 1.5 % (0.0-1.0); %Eosinophils 7.4 % (0.0-10.0); %Lymphocytes 24.5 % (21.0-51.0); %Monocytes 6.1 % (0.0-10.0); %Neutrophils 60.5 % (42.0-75.0); Hemoglobin 12.1 g/dL (14.0-18.0); Mean Corpuscular HGB CONC 31.1 g/dL (32.0-36.0); Mean Corpuscular Hemoglobin 28.5 pg (27.0-31.0); Mean Corpuscular Volume 91.6 fL (78.0-98.0); Mean Platelet Volume 7.1 fL (7.4-10.4); Platelet Count 322 thou/uL (130-400); RBC Distribution Width 15.6 % (11.5-14.5); Red Blood Cell (RBC) Count 4.24 mill/uL (4.70-6.10); White Blood Cell (WBC) Count 9.7 thou/uL (4.8-10.8)
[2019-05-10 05:34] LABS: ALT (SGPT) 13 U/L (8-55); AST (SGOT) 14 U/L (5-34); Alkaline Phosphatase 71 U/L (40-150); Anion Gap 15 mmol/L (10-20); BUN (Urea Nitrogen) 20 mg/dL (8.4-25.7); Bilirubin, Total 0.3 mg/dL (0.2-1.2); Calc. Creatinine Clearance 0 mL/min (70-130); Calcium 8.8 mg/dL (7.8-10.44); Carbon Dioxide 24 mmol/L (23-31); Chloride 103 mmol/L (98-107); Estimated GFR-MDRD 89; Globulin 3.7 g/dL (2.4-3.5); Glucose 91 mg/dL (83-110); Potassium 4.1 mmol/L (3.5-5.1); Protein, Total 6.7 g/dL (5.8-8.1); Sodium 138 mmol/L (136-145)
[2019-05-10] MEDS: Aspirin Chewable 81 MG TAB PO SCH (08:37)
[2019-05-10] MEDS: Saccharomyces boulardii 250 MG CAP PO SCH ×2 (08:38→20:32)
[2019-05-10] MEDS: Famotidine 20 MG TAB PO SCH ×2 (08:38→20:32)
[2019-05-10] MEDS: Folic Acid 1 MG TAB PO SCH (08:38)
[2019-05-10] MEDS: Lisinopril 20 MG TAB PO SCH ×2 (08:38→20:32)
[2019-05-10] MEDS: Hydrochlorothiazide 25 MG TAB PO SCH (08:39)
[2019-05-10] MEDS: Cyanocobalamin (Vitamin B-12) 1,000 MCG TAB PO SCH (08:39)
[2019-05-10] MEDS: Isosorbide Mononitrate (ER) 30 MG TAB PO SCH (08:39)
[2019-05-10] MEDS: Nystatin Powder 15 GM BOT TOP PRN (08:53)
[2019-05-10] MEDS: Vancomycin HCl 500 MG in Sodium Chloride 0.9% 250 ML 250 ML IVPB SCH (13:04)
[2019-05-10] MEDS: Vancomycin HCl 750 MG in Sodium Chloride 0.9% 250 ML 250 ML IVPB SCH (13:04)
[2019-05-10] MEDS ORDERED: Warfarin Sodium 5 MG TAB PO SCH (17:00)
[2019-05-10] MEDS: Simvastatin 40 MG TAB PO SCH (20:33)
[2019-05-11 05:20] LABS: Hemoglobin 11.4 g/dL (14.0-18.0); Platelet Count 321 thou/uL (130-400)
[2019-05-11 05:21] LABS: INR-International Normal Ratio 3.3; Prothrombin Time 33.4 SEC (12.0-14.7)
[2019-05-11] MEDS: Famotidine 20 MG TAB PO SCH ×2 (09:30→20:58)
[2019-05-11] MEDS: Isosorbide Mononitrate (ER) 30 MG TAB PO SCH (09:35)
[2019-05-11] MEDS: Aspirin Chewable 81 MG TAB PO SCH (09:36)
[2019-05-11] MEDS: Cyanocobalamin (Vitamin B-12) 1,000 MCG TAB PO SCH (09:36)
[2019-05-11] MEDS: Hydrochlorothiazide 25 MG TAB PO SCH (09:36)
[2019-05-11] MEDS: Lisinopril 20 MG TAB PO SCH ×2 (09:36→20:58)
[2019-05-11] MEDS: Folic Acid 1 MG TAB PO SCH (09:36)
[2019-05-11] MEDS: Saccharomyces boulardii 250 MG CAP PO SCH ×2 (09:36→20:58)
[2019-05-11] MEDS: Vancomycin HCl 750 MG in Sodium Chloride 0.9% 250 ML 250 ML IVPB SCH (12:13)
[2019-05-11] MEDS: Vancomycin HCl 500 MG in Sodium Chloride 0.9% 250 ML 250 ML IVPB SCH (12:13)
[2019-05-11] MEDS ORDERED: Warfarin Sodium 2.5 MG TAB PO SCH (17:00)
[2019-05-11] MEDS: Simvastatin 40 MG TAB PO SCH (20:59)
[2019-05-12 04:45] LABS: INR-International Normal Ratio 2.9; Prothrombin Time 30.1 SEC (12.0-14.7)
[2019-05-12] MEDS: Lisinopril 20 MG TAB PO SCH ×2 (08:10→20:06)
[2019-05-12] MEDS: Folic Acid 1 MG TAB PO SCH (08:10)
[2019-05-12] MEDS: Saccharomyces boulardii 250 MG CAP PO SCH ×2 (08:10→20:06)
[2019-05-12] MEDS: Aspirin Chewable 81 MG TAB PO SCH (08:10)
[2019-05-12] MEDS: Isosorbide Mononitrate (ER) 30 MG TAB PO SCH (08:10)
[2019-05-12] MEDS: Cyanocobalamin (Vitamin B-12) 1,000 MCG TAB PO SCH (08:10)
[2019-05-12] MEDS: Hydrochlorothiazide 25 MG TAB PO SCH (08:11)
[2019-05-12] MEDS: Famotidine 20 MG TAB PO SCH ×2 (08:11→20:07)
[2019-05-12] MEDS: Vancomycin HCl 750 MG in Sodium Chloride 0.9% 250 ML 250 ML IVPB SCH (13:07)
[2019-05-12] MEDS: Vancomycin HCl 500 MG in Sodium Chloride 0.9% 250 ML 250 ML IVPB SCH (13:10)
[2019-05-12] MEDS: Warfarin Sodium 3 MG TAB PO SCH (17:28)
[2019-05-12] MEDS: Simvastatin 40 MG TAB PO SCH (20:06)
[2019-05-12] MEDS: Docusate 100 MG CAP PO PRN (20:07)
[2019-05-13 04:51] LABS: INR-International Normal Ratio 2.3; Prothrombin Time 25.4 SEC (12.0-14.7)
[2019-05-13 04:57] LABS: Hemoglobin 11.7 g/dL (14.0-18.0); Platelet Count 350 thou/uL (130-400)
[2019-05-13] MEDS: Folic Acid 1 MG TAB PO SCH (08:59)
[2019-05-13] MEDS: Lisinopril 20 MG TAB PO SCH ×2 (08:59→21:03)
[2019-05-13] MEDS: Hydrochlorothiazide 25 MG TAB PO SCH (08:59)
[2019-05-13] MEDS: Famotidine 20 MG TAB PO SCH ×2 (08:59→21:04)
[2019-05-13] MEDS: Saccharomyces boulardii 250 MG CAP PO SCH ×2 (08:59→21:03)
[2019-05-13] MEDS: Isosorbide Mononitrate (ER) 30 MG TAB PO SCH (09:00)
[2019-05-13] MEDS: Cyanocobalamin (Vitamin B-12) 1,000 MCG TAB PO SCH (09:00)
[2019-05-13] MEDS: Aspirin Chewable 81 MG TAB PO SCH (09:00)
[2019-05-13 11:12] LABS: Vancomycin, Trough 12.9 ug/mL
[2019-05-13] MEDS: Vancomycin HCl 750 MG in Sodium Chloride 0.9% 250 ML 250 ML IVPB SCH ×2 (12:11→12:39)
[2019-05-13] MEDS: Warfarin Sodium 3 MG TAB PO SCH (16:59)
[2019-05-13] MEDS: Simvastatin 40 MG TAB PO SCH (21:04)
[2019-05-14 05:39] LABS: INR-International Normal Ratio 2.1; Prothrombin Time 23.7 SEC (12.0-14.7)
[2019-05-14] MEDS: Cyanocobalamin (Vitamin B-12) 1,000 MCG TAB PO SCH (08:57)
[2019-05-14] MEDS: Saccharomyces boulardii 250 MG CAP PO SCH ×2 (08:57→21:36)
[2019-05-14] MEDS: Famotidine 20 MG TAB PO SCH ×2 (08:57→21:37)
[2019-05-14] MEDS: Isosorbide Mononitrate (ER) 30 MG TAB PO SCH (08:57)
[2019-05-14] MEDS: Folic Acid 1 MG TAB PO SCH (08:58)
[2019-05-14] MEDS: Lisinopril 20 MG TAB PO SCH ×2 (08:58→21:36)
[2019-05-14] MEDS: Aspirin Chewable 81 MG TAB PO SCH (08:58)
[2019-05-14] MEDS: Hydrochlorothiazide 25 MG TAB PO SCH (08:58)
[2019-05-14] MEDS: Vancomycin HCl 750 MG in Sodium Chloride 0.9% 250 ML 250 ML IVPB SCH ×2 (10:57→12:19)
[2019-05-14] MEDS: Warfarin Sodium 3 MG TAB PO SCH (17:22)
[2019-05-14] MEDS: Simvastatin 40 MG TAB PO SCH (21:37)
[2019-05-15 05:59] LABS: Hemoglobin 11.7 g/dL (14.0-18.0); Platelet Count 324 thou/uL (130-400)
[2019-05-15 06:04] LABS: Prothrombin Time 22.4 SEC (12.0-14.7)
[2019-05-15] MEDS: Cyanocobalamin (Vitamin B-12) 1,000 MCG TAB PO SCH (09:12)
[2019-05-15] MEDS: Famotidine 20 MG TAB PO SCH ×2 (09:12→20:07)
[2019-05-15] MEDS: Folic Acid 1 MG TAB PO SCH (09:12)
[2019-05-15] MEDS: Lisinopril 20 MG TAB PO SCH ×2 (09:12→20:06)
[2019-05-15] MEDS: Aspirin Chewable 81 MG TAB PO SCH (09:12)
[2019-05-15] MEDS: Isosorbide Mononitrate (ER) 30 MG TAB PO SCH (09:12)
[2019-05-15] MEDS: Saccharomyces boulardii 250 MG CAP PO SCH ×2 (09:12→20:06)
[2019-05-15] MEDS: Hydrochlorothiazide 25 MG TAB PO SCH (09:16)
[2019-05-15 11:10] LABS: Vancomycin, Trough 14.8 ug/mL
[2019-05-15] MEDS: Vancomycin HCl 750 MG in Sodium Chloride 0.9% 250 ML 250 ML IVPB SCH ×2 (12:04→12:07)
[2019-05-15] MEDS: Warfarin Sodium 3 MG TAB PO SCH (17:14)
[2019-05-15] MEDS: Simvastatin 40 MG TAB PO SCH (20:06)
[2019-05-16 05:15] LABS: Prothrombin Time 22.6 SEC (12.0-14.7)
[2019-05-16] MEDS: Famotidine 20 MG TAB PO SCH ×2 (09:15→20:38)
[2019-05-16] MEDS: Isosorbide Mononitrate (ER) 30 MG TAB PO SCH (09:15)
[2019-05-16] MEDS: Folic Acid 1 MG TAB PO SCH (09:15)
[2019-05-16] MEDS: Lisinopril 20 MG TAB PO SCH ×2 (09:15→20:38)
[2019-05-16] MEDS: Cyanocobalamin (Vitamin B-12) 1,000 MCG TAB PO SCH (09:15)
[2019-05-16] MEDS: Hydrochlorothiazide 25 MG TAB PO SCH (09:15)
[2019-05-16] MEDS: Aspirin Chewable 81 MG TAB PO SCH (09:15)
[2019-05-16] MEDS: Saccharomyces boulardii 250 MG CAP PO SCH ×2 (09:15→20:38)
[2019-05-16] MEDS ORDERED: Vancomycin HCl 750 MG in Sodium Chloride 0.9% 250 ML 250 ML IVPB SCH (12:00)
[2019-05-16] MEDS: Vancomycin HCl 750 MG in Sodium Chloride 0.9% 250 ML 250 ML IVPB SCH ×2 (12:14)
[2019-05-16] MEDS: Warfarin Sodium 3 MG TAB PO SCH (17:10)
[2019-05-16] MEDS: Simvastatin 40 MG TAB PO SCH (20:38)
[2019-05-17 05:43] LABS: INR-International Normal Ratio 1.9; Prothrombin Time 21.7 SEC (12.0-14.7)
[2019-05-17 05:45] LABS: #Basophils 0.2 thou/uL (0.0-0.2); #Eosinphils 1.2 thou/uL (0.0-0.7); #Lymphocytes 2.9 thou/uL (1.20-3.40); #Monocytes 0.8 thou/uL (0.11-0.59); #Neutrophils 7.4 thou/uL (1.40-6.50); %Basophils 1.5 % (0.0-1.0); %Eosinophils 9.2 % (0.0-10.0); %Lymphocytes 23.6 % (21.0-51.0); %Monocytes 6.3 % (0.0-10.0); %Neutrophils 59.5 % (42.0-75.0); Hemoglobin 10.7 g/dL (14.0-18.0); Mean Corpuscular HGB CONC 31.2 g/dL (32.0-36.0); Mean Corpuscular Hemoglobin 28.1 pg (27.0-31.0); Mean Corpuscular Volume 89.9 fL (78.0-98.0); Mean Platelet Volume 6.7 fL (7.4-10.4); Platelet Count 389 thou/uL (130-400); White Blood Cell (WBC) Count 12.5 thou/uL (4.8-10.8)
[2019-05-17 05:47] LABS: ALT (SGPT) 12 U/L (8-55); AST (SGOT) 16 U/L (5-34); Albumin 3.2 g/dL (3.4-4.8); Alkaline Phosphatase 76 U/L (40-150); Anion Gap 14 mmol/L (10-20); BUN (Urea Nitrogen) 37 mg/dL (8.4-25.7); Bilirubin, Total 0.2 mg/dL (0.2-1.2); Calc. Creatinine Clearance 88 mL/min (70-130); Calcium 9.4 mg/dL (7.8-10.44); Carbon Dioxide 28 mmol/L (23-31); Chloride 99 mmol/L (98-107); Estimated GFR-MDRD 80; Globulin 3.9 g/dL (2.4-3.5); Glucose 103 mg/dL (83-110); Potassium 4.6 mmol/L (3.5-5.1); Protein, Total 7.1 g/dL (5.8-8.1); Sodium 136 mmol/L (136-145)
[2019-05-17] MEDS: Hydrochlorothiazide 25 MG TAB PO SCH (08:39)
[2019-05-17] MEDS: Lisinopril 20 MG TAB PO SCH ×2 (08:39→19:50)
[2019-05-17] MEDS: Isosorbide Mononitrate (ER) 30 MG TAB PO SCH (08:39)
[2019-05-17] MEDS: Saccharomyces boulardii 250 MG CAP PO SCH ×2 (08:39→19:50)
[2019-05-17] MEDS: Folic Acid 1 MG TAB PO SCH (08:39)
[2019-05-17] MEDS: Aspirin Chewable 81 MG TAB PO SCH (08:39)
[2019-05-17] MEDS: Famotidine 20 MG TAB PO SCH ×2 (08:40→19:50)
[2019-05-17] MEDS: Cyanocobalamin (Vitamin B-12) 1,000 MCG TAB PO SCH (08:40)
[2019-05-17] MEDS: Vancomycin HCl 750 MG in Sodium Chloride 0.9% 250 ML 250 ML IVPB SCH ×3 (11:51→12:21)
[2019-05-17] MEDS: Docusate 100 MG CAP PO PRN (15:20)
[2019-05-17] MEDS: Warfarin Sodium 2 MG TAB PO SCH (17:05)
[2019-05-17] MEDS: Simvastatin 40 MG TAB PO SCH (19:50)
[2019-05-18 06:35] LABS: INR-International Normal Ratio 2.1; Prothrombin Time 23.1 SEC (12.0-14.7)
[2019-05-18] MEDS: Folic Acid 1 MG TAB PO SCH (09:04)
[2019-05-18] MEDS: Isosorbide Mononitrate (ER) 30 MG TAB PO SCH (09:04)
[2019-05-18] MEDS: Famotidine 20 MG TAB PO SCH ×2 (09:04→20:12)
[2019-05-18] MEDS: Cyanocobalamin (Vitamin B-12) 1,000 MCG TAB PO SCH (09:04)
[2019-05-18] MEDS: Hydrochlorothiazide 25 MG TAB PO SCH (09:04)
[2019-05-18] MEDS: Saccharomyces boulardii 250 MG CAP PO SCH ×2 (09:05→20:12)
[2019-05-18] MEDS: Aspirin Chewable 81 MG TAB PO SCH (09:05)
[2019-05-18] MEDS: Lisinopril 20 MG TAB PO SCH ×2 (09:05→20:12)
[2019-05-18] MEDS: Vancomycin HCl 750 MG in Sodium Chloride 0.9% 250 ML 250 ML IVPB SCH ×2 (12:00→12:07)
[2019-05-18] MEDS: Warfarin Sodium 2 MG TAB PO SCH (17:09)
[2019-05-18] MEDS: Simvastatin 40 MG TAB PO SCH (20:12)
[2019-05-18] MEDS: Nystatin Powder 15 GM BOT TOP PRN (20:18)
[2019-05-19 06:01] LABS: INR-International Normal Ratio 2.2; Prothrombin Time 24.1 SEC (12.0-14.7)
[2019-05-19 06:40] LABS: Hemoglobin 11.3 g/dL (14.0-18.0); Platelet Count 304 thou/uL (130-400)
[2019-05-19] MEDS: Lisinopril 20 MG TAB PO SCH ×2 (08:45→20:11)
[2019-05-19] MEDS: Cyanocobalamin (Vitamin B-12) 1,000 MCG TAB PO SCH (08:45)
[2019-05-19] MEDS: Isosorbide Mononitrate (ER) 30 MG TAB PO SCH (08:47)
[2019-05-19] MEDS: Saccharomyces boulardii 250 MG CAP PO SCH ×2 (08:48→20:10)
[2019-05-19] MEDS: Hydrochlorothiazide 25 MG TAB PO SCH (08:48)
[2019-05-19] MEDS: Folic Acid 1 MG TAB PO SCH (08:48)
[2019-05-19] MEDS: Aspirin Chewable 81 MG TAB PO SCH (08:48)
[2019-05-19] MEDS: Famotidine 20 MG TAB PO SCH ×2 (08:48→20:11)
[2019-05-19 11:22] LABS: Vancomycin, Trough 19.3 ug/mL
[2019-05-19] MEDS: Vancomycin HCl 750 MG in Sodium Chloride 0.9% 250 ML 250 ML IVPB SCH ×2 (12:02→12:03)
[2019-05-19] MEDS ORDERED: Sodium Hypochlorite 0.25% Solution 480 ML BOT TOP SCH (15:00)
[2019-05-19] MEDS: Warfarin Sodium 2 MG TAB PO SCH (17:29)
[2019-05-19] MEDS: Simvastatin 40 MG TAB PO SCH (20:10)
[2019-05-20 05:27] LABS: INR-International Normal Ratio 2.3; Prothrombin Time 25.3 SEC (12.0-14.7)
[2019-05-20] MEDS: Lisinopril 20 MG TAB PO SCH ×2 (09:20→21:14)
[2019-05-20] MEDS: Isosorbide Mononitrate (ER) 30 MG TAB PO SCH (09:21)
[2019-05-20] MEDS: Famotidine 20 MG TAB PO SCH ×2 (09:21→21:15)
[2019-05-20] MEDS: Saccharomyces boulardii 250 MG CAP PO SCH ×2 (09:21→21:15)
[2019-05-20] MEDS: Folic Acid 1 MG TAB PO SCH (09:21)
[2019-05-20] MEDS: Hydrochlorothiazide 25 MG TAB PO SCH (09:22)
[2019-05-20] MEDS: Cyanocobalamin (Vitamin B-12) 1,000 MCG TAB PO SCH (09:22)
[2019-05-20] MEDS: Aspirin Chewable 81 MG TAB PO SCH (09:22)
[2019-05-20] MEDS: Vancomycin HCl 750 MG in Sodium Chloride 0.9% 250 ML 250 ML IVPB SCH ×2 (12:13→12:19)
[2019-05-20] MEDS: Nystatin Powder 15 GM BOT TOP PRN (15:31)
[2019-05-20] MEDS: Warfarin Sodium 2 MG TAB PO SCH (17:03)
[2019-05-20] MEDS: Simvastatin 40 MG TAB PO SCH (21:15)
[2019-05-21 05:34] LABS: Hemoglobin 11.3 g/dL (14.0-18.0); Platelet Count 302 thou/uL (130-400)
[2019-05-21 05:37] LABS: INR-International Normal Ratio 2.5; Prothrombin Time 27.2 SEC (12.0-14.7)
[2019-05-21] MEDS: Lisinopril 20 MG TAB PO SCH ×2 (09:08→20:57)
[2019-05-21] MEDS: Cyanocobalamin (Vitamin B-12) 1,000 MCG TAB PO SCH (09:08)
[2019-05-21] MEDS: Aspirin Chewable 81 MG TAB PO SCH (09:08)
[2019-05-21] MEDS: Saccharomyces boulardii 250 MG CAP PO SCH ×2 (09:08→20:57)
[2019-05-21] MEDS: Isosorbide Mononitrate (ER) 30 MG TAB PO SCH (09:08)
[2019-05-21] MEDS: Folic Acid 1 MG TAB PO SCH (09:08)
[2019-05-21] MEDS: Hydrochlorothiazide 25 MG TAB PO SCH (09:09)
[2019-05-21] MEDS: Famotidine 20 MG TAB PO SCH ×2 (09:10→20:58)
--- NOTE | 2019-05-21 09:42 | PRG ---
DATE OF SERVICE: 05/05/2019 SUBJECTIVE: He denies any complaints. He is participating with wound care along with his physical and occupational therapy. OBJECTIVE: VITAL SIGNS: Blood pressure 116/62, temperature 98.2, pulse of 72, RR of 20, and O2 saturation 92% on room air. GENERAL: The patient is alert, oriented, not in respiratory distress. HEENT: Normocephalic, atraumatic. Pupils equal, reactive to light. NECK: Supple. Negative for lymphadenopathy. CHEST AND LUNGS: Symmetrical expansion, decreased breath sounds due to body habitus. HEART: Regular rate and rhythm. Negative for murmur. ABDOMEN: Obese, nontender. Normoactive bowel sounds. Negative for CVA tenderness. EXTREMITIES: Symmetrical, good range of motion in both upper and lower extremities. Negative for edema. SKIN: Positive for wound VAC on sacral area. Review of physical therapy report noted 10.7 x 10.1 x 10.6, stage IV full-thickness decubitus ulcer. Wound bed has red granulation, fascia, tendon and muscles visible with serosanguineous drainage. LABORATORY DATA: Hemoglobin of 14.5, hematocrit of 44.9, platelet count of 350. WBC of 12.1, PT of 25.8, INR of 2.4. Sodium of 136, potassium 3.9, BUN of 27, creatinine of 0.85, AST of 26, ALT of 18. ASSESSMENT: 1. Stage IV full thickness decubitus ulcer on wound VAC. 2. Methicillin-resistant Staphylococcus aureus stage IV decubitus ulcer on IV vancomycin, pharmacy managing the dose. 3. Ischemic cardiomyopathy. 4. Chronic atrial fibrillation, rate controlled on Coumadin. 5. Hypertension, stable on lisinopril 40 mg. 6. Gait instability. We will continue PT and OT. 7. Full code. Job ID: [id number]
[2019-05-21] MEDS: Vancomycin HCl 750 MG in Sodium Chloride 0.9% 250 ML 250 ML IVPB SCH ×2 (12:07→12:13)
[2019-05-21] MEDS: Docusate 100 MG CAP PO PRN (12:08)
[2019-05-21 14:39] LABS: White Blood Cell (WBC) Count 10.9 thou/uL (4.8-10.8)
[2019-05-21] MEDS: Warfarin Sodium 2 MG TAB PO SCH (17:47)
[2019-05-21] MEDS: Ciprofloxacin 500 MG TAB PO SCH (20:57)
[2019-05-21] MEDS: Simvastatin 40 MG TAB PO SCH (20:57)
[2019-05-22 05:31] LABS: INR-International Normal Ratio 2.6; Prothrombin Time 27.4 SEC (12.0-14.7)
[2019-05-22] MEDS: Ciprofloxacin 500 MG TAB PO SCH ×2 (05:32→20:59)
--- NOTE | 2019-05-22 06:21 | PRG ---
DATE OF SERVICE: 05/13/2019 SUBJECTIVE: The patient is eating very well, he is requiring assistance going to the bathroom. He denies any pain. He is participating well with physical therapy. He walked about 284 feet this morning using his rolling walker with contact guard assist. He denies any chest pain, shortness of breath, or abdominal pain. OBJECTIVE: VITAL SIGNS: Blood pressure of 99/55, temperature of 97.9, pulse of 73, RR of 20, O2 saturation 94% on room air. GENERAL: The patient is alert, oriented, not in respiratory distress. HEENT: Normocephalic, atraumatic. Pupils equal and reactive to light. NECK: Supple. Negative for lymphadenopathy. CHEST AND LUNGS: Symmetrical expansion, decreased breath sounds due to body habitus. HEART: Regular rate and rhythm. Negative for murmur. ABDOMEN: Obese, nontender. Normoactive bowel sounds. Negative for CVA tenderness. EXTREMITIES: Symmetrical. Good range of motion of both upper and lower extremities. Negative for edema or cyanosis. SKIN: Positive for a wound VAC on the sacral area. Notes reviewed noted 10.7 x 10.1 x 4.2 wound, stage IV full-thickness decubitus ulcer, wound bed has red granulation. The fascia, tendon and muscles are all visible with serosanguineous drainage. LABORATORY DATA: Labs reviewed, stable. ASSESSMENT: 1. Stage IV full-thickness decubitus ulcer, on wound VAC. 2. Methicillin-resistant Staphylococcus aureus, stage IV decubitus ulcer, on IV vancomycin. 3. Ischemic cardiomyopathy. 4. Chronic atrial fibrillation, rate controlled on Coumadin, stable. 5. Hypertension, stable on lisinopril 40 mg. 6. Gait instability. He will continue with physical and occupational therapy. 7. Full code. Job ID: [id number]
[2019-05-22] MEDS: Docusate 100 MG CAP PO PRN (09:02)
[2019-05-22] MEDS: Saccharomyces boulardii 250 MG CAP PO SCH ×2 (09:02→20:59)
[2019-05-22] MEDS: Hydrochlorothiazide 25 MG TAB PO SCH (09:03)
[2019-05-22] MEDS: Isosorbide Mononitrate (ER) 30 MG TAB PO SCH (09:03)
[2019-05-22] MEDS: Aspirin Chewable 81 MG TAB PO SCH (09:03)
[2019-05-22] MEDS: Lisinopril 20 MG TAB PO SCH ×2 (09:03→20:59)
[2019-05-22] MEDS: Cyanocobalamin (Vitamin B-12) 1,000 MCG TAB PO SCH (09:03)
[2019-05-22] MEDS: Famotidine 20 MG TAB PO SCH ×2 (09:03→20:59)
[2019-05-22] MEDS: Folic Acid 1 MG TAB PO SCH (09:04)
[2019-05-22 11:38] LABS: Vancomycin, Trough 17.8 ug/mL
[2019-05-22] MEDS: Vancomycin HCl 750 MG in Sodium Chloride 0.9% 250 ML 250 ML IVPB SCH ×2 (12:10→12:20)
[2019-05-22] MEDS: Sodium Hypochlorite 0.25% Solution 480 ML BOT TOP SCH (12:21)
[2019-05-22] MEDS: Warfarin Sodium 2 MG TAB PO SCH (17:08)
[2019-05-22] MEDS: Simvastatin 40 MG TAB PO SCH (20:59)
[2019-05-23] MEDS: Ciprofloxacin 500 MG TAB PO SCH ×2 (05:26→20:13)
[2019-05-23 05:43] LABS: INR-International Normal Ratio 2.6; Prothrombin Time 27.8 SEC (12.0-14.7)
[2019-05-23 05:54] LABS: Hemoglobin 12.7 g/dL (14.0-18.0); Platelet Count 303 thou/uL (130-400)
[2019-05-23] MEDS: Saccharomyces boulardii 250 MG CAP PO SCH ×2 (08:25→20:14)
[2019-05-23] MEDS: Hydrochlorothiazide 25 MG TAB PO SCH (08:25)
[2019-05-23] MEDS: Folic Acid 1 MG TAB PO SCH (08:25)
[2019-05-23] MEDS: Famotidine 20 MG TAB PO SCH ×2 (08:25→20:13)
[2019-05-23] MEDS: Isosorbide Mononitrate (ER) 30 MG TAB PO SCH (08:25)
[2019-05-23] MEDS: Lisinopril 20 MG TAB PO SCH ×2 (08:25→20:13)
[2019-05-23] MEDS: Cyanocobalamin (Vitamin B-12) 1,000 MCG TAB PO SCH (08:25)
[2019-05-23] MEDS: Aspirin Chewable 81 MG TAB PO SCH (08:25)
[2019-05-23] MEDS: Vancomycin HCl 750 MG in Sodium Chloride 0.9% 250 ML 250 ML IVPB SCH ×2 (11:36→12:53)
[2019-05-23] MEDS: Docusate 100 MG CAP PO PRN (14:39)
[2019-05-23] MEDS: Warfarin Sodium 2 MG TAB PO SCH (17:06)
[2019-05-23] MEDS: Simvastatin 40 MG TAB PO SCH (20:13)
[2019-05-24 04:57] LABS: #Basophils 0.1 thou/uL (0.0-0.2); #Eosinphils 1.3 thou/uL (0.0-0.7); #Lymphocytes 2.4 thou/uL (1.20-3.40); #Monocytes 0.6 thou/uL (0.11-0.59); #Neutrophils 5.7 thou/uL (1.40-6.50); %Basophils 1.3 % (0.0-1.0); %Lymphocytes 23.1 % (21.0-51.0); %Monocytes 6.3 % (0.0-10.0); %Neutrophils 56.3 % (42.0-75.0); Hemoglobin 12.1 g/dL (14.0-18.0); Mean Corpuscular HGB CONC 31.5 g/dL (32.0-36.0); Mean Corpuscular Hemoglobin 28.5 pg (27.0-31.0); Mean Corpuscular Volume 90.4 fL (78.0-98.0); Mean Platelet Volume 6.7 fL (7.4-10.4); Platelet Count 311 thou/uL (130-400); RBC Distribution Width 15.9 % (11.5-14.5); Red Blood Cell (RBC) Count 4.24 mill/uL (4.70-6.10); White Blood Cell (WBC) Count 10.2 thou/uL (4.8-10.8)
[2019-05-24 05:06] LABS: INR-International Normal Ratio 2.7; Prothrombin Time 28.3 SEC (12.0-14.7)
[2019-05-24 05:14] LABS: ALT (SGPT) 15 U/L (8-55); AST (SGOT) 16 U/L (5-34); Albumin 3.4 g/dL (3.4-4.8); Alkaline Phosphatase 76 U/L (40-150); Anion Gap 13 mmol/L (10-20); BUN (Urea Nitrogen) 29 mg/dL (8.4-25.7); Bilirubin, Total 0.2 mg/dL (0.2-1.2); Calc. Creatinine Clearance 65 mL/min (70-130); Calcium 9.1 mg/dL (7.8-10.44); Carbon Dioxide 27 mmol/L (23-31); Chloride 101 mmol/L (98-107); Estimated GFR-MDRD 54; Globulin 3.7 g/dL (2.4-3.5); Glucose 105 mg/dL (83-110); Potassium 4.2 mmol/L (3.5-5.1); Protein, Total 7.1 g/dL (5.8-8.1); Sodium 137 mmol/L (136-145)
[2019-05-24] MEDS: Ciprofloxacin 500 MG TAB PO SCH ×2 (05:53→20:28)
[2019-05-24] MEDS: Saccharomyces boulardii 250 MG CAP PO SCH ×2 (08:38→20:27)
[2019-05-24] MEDS: Hydrochlorothiazide 25 MG TAB PO SCH (08:38)
[2019-05-24] MEDS: Lisinopril 20 MG TAB PO SCH ×2 (08:38→20:28)
[2019-05-24] MEDS: Cyanocobalamin (Vitamin B-12) 1,000 MCG TAB PO SCH (08:39)
[2019-05-24] MEDS: Famotidine 20 MG TAB PO SCH ×2 (08:39→20:28)
[2019-05-24] MEDS: Isosorbide Mononitrate (ER) 30 MG TAB PO SCH (08:39)
[2019-05-24] MEDS: Folic Acid 1 MG TAB PO SCH (08:39)
[2019-05-24] MEDS: Aspirin Chewable 81 MG TAB PO SCH (08:39)
[2019-05-24] MEDS: Vancomycin HCl 750 MG in Sodium Chloride 0.9% 250 ML 250 ML IVPB SCH ×2 (12:58)
[2019-05-24] MEDS: Sodium Hypochlorite 0.25% Solution 480 ML BOT TOP SCH (14:33)
[2019-05-24] MEDS: Betamethasone 0.1% Cream 15 GM TUBE TOP PRN (17:17)
[2019-05-24] MEDS: Nystatin Powder 15 GM BOT TOP PRN (17:17)
[2019-05-24] MEDS: Warfarin Sodium 2 MG TAB PO SCH (17:17)
[2019-05-24] MEDS: Simvastatin 40 MG TAB PO SCH (20:27)
[2019-05-25] MEDS: Ciprofloxacin 500 MG TAB PO SCH ×2 (05:13→20:28)
[2019-05-25 05:30] LABS: Hemoglobin 12.1 g/dL (14.0-18.0); Platelet Count 328 thou/uL (130-400)
[2019-05-25 05:31] LABS: INR-International Normal Ratio 2.7; Prothrombin Time 28.2 SEC (12.0-14.7)
[2019-05-25] MEDS: Saccharomyces boulardii 250 MG CAP PO SCH ×2 (09:42→20:27)
[2019-05-25] MEDS: Lisinopril 20 MG TAB PO SCH ×2 (09:42→20:28)
[2019-05-25] MEDS: Famotidine 20 MG TAB PO SCH ×2 (09:46→20:28)
[2019-05-25] MEDS: Hydrochlorothiazide 25 MG TAB PO SCH (09:47)
[2019-05-25] MEDS: Folic Acid 1 MG TAB PO SCH (09:47)
[2019-05-25] MEDS: Aspirin Chewable 81 MG TAB PO SCH (09:47)
[2019-05-25] MEDS: Cyanocobalamin (Vitamin B-12) 1,000 MCG TAB PO SCH (09:47)
[2019-05-25] MEDS: Isosorbide Mononitrate (ER) 30 MG TAB PO SCH (09:47)
[2019-05-25] MEDS: Betamethasone 0.1% Cream 15 GM TUBE TOP PRN (09:55)
[2019-05-25] MEDS: Nystatin Powder 15 GM BOT TOP PRN (09:55)
[2019-05-25 11:37] LABS: Vancomycin, Trough 19.6 ug/mL
[2019-05-25] MEDS: Vancomycin HCl 750 MG in Sodium Chloride 0.9% 250 ML 250 ML IVPB SCH ×2 (12:10→12:22)
[2019-05-25] MEDS: Docusate 100 MG CAP PO PRN (12:45)
[2019-05-25] MEDS: Warfarin Sodium 2 MG TAB PO SCH (17:01)
[2019-05-25] MEDS: Simvastatin 40 MG TAB PO SCH (20:27)
[2019-05-26 04:36] LABS: INR-International Normal Ratio 3.3; Prothrombin Time 33.6 SEC (12.0-14.7)
[2019-05-26] MEDS: Ciprofloxacin 500 MG TAB PO SCH ×2 (05:26→19:59)
[2019-05-26] MEDS: Hydrochlorothiazide 25 MG TAB PO SCH (08:25)
[2019-05-26] MEDS: Famotidine 20 MG TAB PO SCH ×2 (08:25→19:59)
[2019-05-26] MEDS: Aspirin Chewable 81 MG TAB PO SCH (08:25)
[2019-05-26] MEDS: Folic Acid 1 MG TAB PO SCH (08:25)
[2019-05-26] MEDS: Saccharomyces boulardii 250 MG CAP PO SCH ×2 (08:25→19:59)
[2019-05-26] MEDS: Lisinopril 20 MG TAB PO SCH ×2 (08:25→19:59)
[2019-05-26] MEDS: Isosorbide Mononitrate (ER) 30 MG TAB PO SCH (08:26)
[2019-05-26] MEDS: Cyanocobalamin (Vitamin B-12) 1,000 MCG TAB PO SCH (08:26)
[2019-05-26] MEDS: Vancomycin HCl 750 MG in Sodium Chloride 0.9% 250 ML 250 ML IVPB SCH ×2 (14:14→14:15)
[2019-05-26] MEDS: Sodium Hypochlorite 0.25% Solution 480 ML BOT TOP SCH (15:06)
[2019-05-26] MEDS: Warfarin Sodium 3 MG TAB PO SCH (16:53)
[2019-05-26] MEDS: Simvastatin 40 MG TAB PO SCH (19:59)
[2019-05-27] MEDS: Ciprofloxacin 500 MG TAB PO SCH ×2 (05:04→21:51)
[2019-05-27 08:49] LABS: INR-International Normal Ratio 0.7; Prothrombin Time 10.3 SEC (12.0-14.7)
[2019-05-27] MEDS: Aspirin Chewable 81 MG TAB PO SCH (09:14)
[2019-05-27] MEDS: Lisinopril 20 MG TAB PO SCH ×2 (09:14→21:52)
[2019-05-27] MEDS: Famotidine 20 MG TAB PO SCH ×2 (09:15→21:51)
[2019-05-27] MEDS: Hydrochlorothiazide 25 MG TAB PO SCH (09:15)
[2019-05-27] MEDS: Isosorbide Mononitrate (ER) 30 MG TAB PO SCH (09:15)
[2019-05-27] MEDS: Saccharomyces boulardii 250 MG CAP PO SCH ×2 (09:15→21:52)
[2019-05-27] MEDS: Folic Acid 1 MG TAB PO SCH (09:15)
[2019-05-27] MEDS: Cyanocobalamin (Vitamin B-12) 1,000 MCG TAB PO SCH (09:15)
[2019-05-27 09:17] LABS: Hemoglobin 11.5 g/dL (14.0-18.0); Platelet Count 294 thou/uL (130-400)
[2019-05-27] MEDS: Vancomycin HCl 750 MG in Sodium Chloride 0.9% 250 ML 250 ML IVPB SCH ×2 (11:57→12:01)
[2019-05-27] MEDS ORDERED: Warfarin Sodium 2 MG TAB PO SCH (13:00)
[2019-05-27] MEDS ORDERED: HYDROcodone/Acetaminophen 10/325 mg Tablet PO PRN (16:46)
[2019-05-27] MEDS ORDERED: HYDROcodone/Acetaminophen 5/325 mg Tablet PO PRN (16:46)
[2019-05-27] MEDS: Warfarin Sodium 3 MG TAB PO SCH (17:20)
[2019-05-27] MEDS: Simvastatin 40 MG TAB PO SCH (21:52)
[2019-05-28 05:13] LABS: Prothrombin Time 30.6 SEC (12.0-14.7)
[2019-05-28] MEDS: Ciprofloxacin 500 MG TAB PO SCH ×2 (05:13→20:57)
[2019-05-28] MEDS: Hydrochlorothiazide 25 MG TAB PO SCH (08:27)
[2019-05-28] MEDS: Cyanocobalamin (Vitamin B-12) 1,000 MCG TAB PO SCH (08:27)
[2019-05-28] MEDS: Aspirin Chewable 81 MG TAB PO SCH (08:28)
[2019-05-28] MEDS: Folic Acid 1 MG TAB PO SCH (08:28)
[2019-05-28] MEDS: Saccharomyces boulardii 250 MG CAP PO SCH ×2 (08:28→20:57)
[2019-05-28] MEDS: Isosorbide Mononitrate (ER) 30 MG TAB PO SCH (08:28)
[2019-05-28] MEDS: Famotidine 20 MG TAB PO SCH ×2 (08:28→20:51)
[2019-05-28] MEDS: Lisinopril 20 MG TAB PO SCH ×2 (08:28→20:51)
[2019-05-28] MEDS: Vancomycin HCl 750 MG in Sodium Chloride 0.9% 250 ML 250 ML IVPB SCH ×2 (11:47→12:00)
[2019-05-28] MEDS: Warfarin Sodium 3 MG TAB PO SCH (17:00)
[2019-05-28] MEDS: Simvastatin 40 MG TAB PO SCH (20:51)
[2019-05-29] MEDS: Ciprofloxacin 500 MG TAB PO SCH ×2 (05:18→20:20)
[2019-05-29 05:40] LABS: INR-International Normal Ratio 2.9; Prothrombin Time 29.7 SEC (12.0-14.7)
[2019-05-29 07:20] LABS: Hemoglobin 11.7 g/dL (14.0-18.0); Platelet Count 249 thou/uL (130-400)
[2019-05-29] MEDS: Cyanocobalamin (Vitamin B-12) 1,000 MCG TAB PO SCH (08:28)
[2019-05-29] MEDS: Lisinopril 20 MG TAB PO SCH ×2 (08:28→20:25)
[2019-05-29] MEDS: Famotidine 20 MG TAB PO SCH ×2 (08:28→20:21)
[2019-05-29] MEDS: Saccharomyces boulardii 250 MG CAP PO SCH ×2 (08:28→20:21)
[2019-05-29] MEDS: Aspirin Chewable 81 MG TAB PO SCH (08:29)
[2019-05-29] MEDS: Isosorbide Mononitrate (ER) 30 MG TAB PO SCH (08:29)
[2019-05-29] MEDS: Hydrochlorothiazide 25 MG TAB PO SCH (08:29)
[2019-05-29] MEDS: Folic Acid 1 MG TAB PO SCH (08:29)
[2019-05-29] MEDS ORDERED: Triple Antibiotic Oint 1 GM Packet ONE (10:55)
[2019-05-29] MEDS: Vancomycin HCl 750 MG in Sodium Chloride 0.9% 250 ML 250 ML IVPB SCH ×2 (12:10)
[2019-05-29] MEDS: Sodium Hypochlorite 0.25% Solution 480 ML BOT TOP SCH (12:10)
[2019-05-29] MEDS: Docusate 100 MG CAP PO PRN (17:07)
[2019-05-29] MEDS: Warfarin Sodium 3 MG TAB PO SCH (17:07)
[2019-05-29] MEDS: Simvastatin 40 MG TAB PO SCH (20:21)
[2019-05-30 05:09] LABS: INR-International Normal Ratio 2.8
[2019-05-30] MEDS: Ciprofloxacin 500 MG TAB PO SCH (05:14)
[2019-05-30] MEDS: Isosorbide Mononitrate (ER) 30 MG TAB PO SCH (08:32)
[2019-05-30] MEDS: Hydrochlorothiazide 25 MG TAB PO SCH (08:32)
[2019-05-30] MEDS: Aspirin Chewable 81 MG TAB PO SCH (08:33)
[2019-05-30] MEDS: Cyanocobalamin (Vitamin B-12) 1,000 MCG TAB PO SCH (08:34)
[2019-05-30] MEDS: Lisinopril 20 MG TAB PO SCH (08:34)
[2019-05-30] MEDS: Famotidine 20 MG TAB PO SCH ×2 (08:34→20:10)
[2019-05-30] MEDS: Saccharomyces boulardii 250 MG CAP PO SCH ×2 (08:34→20:10)
[2019-05-30] MEDS: Docusate 100 MG CAP PO PRN (08:34)
[2019-05-30] MEDS: Folic Acid 1 MG TAB PO SCH (08:34)
[2019-05-30 11:15] LABS: Vancomycin, Trough 21.6 ug/mL
[2019-05-30] MEDS: Vancomycin HCl 750 MG in Sodium Chloride 0.9% 250 ML 250 ML IVPB SCH ×2 (12:28→12:32)
[2019-05-30] MEDS: Mupirocin 2% Ointment 22 GM Tube TOP SCH ×3 (16:37→20:10)
[2019-05-30] MEDS: Warfarin Sodium 3 MG TAB PO SCH (16:59)
[2019-05-30] MEDS: Simvastatin 40 MG TAB PO SCH (20:10)
[2019-05-31 05:13] LABS: INR-International Normal Ratio 2.8
[2019-05-31 05:24] LABS: ALT (SGPT) 13 U/L (8-55); AST (SGOT) 13 U/L (5-34); Albumin 3.1 g/dL (3.4-4.8); Alkaline Phosphatase 70 U/L (40-110); Anion Gap 12 mmol/L (10-20); BUN (Urea Nitrogen) 44 mg/dL (8.4-25.7); Bilirubin, Total 0.2 mg/dL (0.2-1.2); Calc. Creatinine Clearance 74 mL/min (70-130); Calcium 8.8 mg/dL (7.8-10.44); Carbon Dioxide 26 mmol/L (23-31); Chloride 103 mmol/L (98-107); Estimated GFR-MDRD 67; Globulin 3.3 g/dL (2.4-3.5); Glucose 104 mg/dL (83-110); Protein, Total 6.4 g/dL (5.8-8.1); Sodium 137 mmol/L (136-145)
[2019-05-31 06:50] LABS: Red Blood Cell (RBC) Count 3.91 mill/uL (4.70-6.10); White Blood Cell (WBC) Count 11.6 thou/uL (4.8-10.8)
[2019-05-31 06:51] LABS: #Basophils 0.1 thou/uL (0.0-0.2); #Eosinphils 1.3 thou/uL (0.0-0.7); #Monocytes 0.8 thou/uL (0.11-0.59); #Neutrophils 6.9 thou/uL (1.40-6.50); %Basophils 1.1 % (0.0-1.0); %Eosinophils 11.5 % (0.0-10.0); %Lymphocytes 20.4 % (21.0-51.0); %Monocytes 7.2 % (0.0-10.0); %Neutrophils 59.8 % (42.0-75.0); MDiff Complete? YES; Manual Diff?? NO; Mean Corpuscular HGB CONC 31.3 g/dL (32.0-36.0); Mean Corpuscular Hemoglobin 28.2 pg (27.0-31.0); Mean Platelet Volume 6.5 fL (7.4-10.4); Platelet Count 299 thou/uL (130-400)
[2019-05-31 08:46] LABS: #Lymphocytes 2.4 thou/uL (1.20-3.40)
[2019-05-31] MEDS: Cyanocobalamin (Vitamin B-12) 1,000 MCG TAB PO SCH (09:07)
[2019-05-31] MEDS: Hydrochlorothiazide 25 MG TAB PO SCH (09:08)
[2019-05-31] MEDS: Folic Acid 1 MG TAB PO SCH (09:08)
[2019-05-31] MEDS: Saccharomyces boulardii 250 MG CAP PO SCH ×2 (09:09→20:12)
[2019-05-31] MEDS: Famotidine 20 MG TAB PO SCH ×2 (09:09→20:11)
[2019-05-31] MEDS: Aspirin Chewable 81 MG TAB PO SCH (09:09)
[2019-05-31] MEDS: Lisinopril 5 MG TAB PO SCH (09:09)
[2019-05-31] MEDS: Isosorbide Mononitrate (ER) 30 MG TAB PO SCH (09:09)
[2019-05-31] MEDS: Mupirocin 2% Ointment 22 GM Tube TOP SCH ×3 (09:13→20:17)
[2019-05-31] MEDS: Betamethasone 0.1% Cream 15 GM TUBE TOP PRN (09:15)
[2019-05-31] MEDS: Vancomycin HCl 750 MG in Sodium Chloride 0.9% 250 ML 250 ML IVPB SCH (11:53)
[2019-05-31] MEDS: Vancomycin HCl 500 MG in Sodium Chloride 0.9% 100 ML IVPB SCH (12:04)
[2019-05-31] MEDS: Sodium Hypochlorite 0.25% Solution 480 ML BOT TOP SCH (12:13)
[2019-05-31] MEDS: Warfarin Sodium 3 MG TAB PO SCH (16:54)
[2019-05-31] MEDS: Simvastatin 40 MG TAB PO SCH (20:11)
[2019-06-01 05:32] LABS: INR-International Normal Ratio 2.5; Prothrombin Time 26.7 SEC (12.0-14.7)
[2019-06-01] MEDS: Aspirin Chewable 81 MG TAB PO SCH (08:46)
[2019-06-01] MEDS: Saccharomyces boulardii 250 MG CAP PO SCH ×2 (08:46→20:29)
[2019-06-01] MEDS: Famotidine 20 MG TAB PO SCH ×2 (08:46→20:29)
[2019-06-01] MEDS: Docusate 100 MG CAP PO PRN (08:47)
[2019-06-01] MEDS: Lisinopril 5 MG TAB PO SCH (08:47)
[2019-06-01] MEDS: Folic Acid 1 MG TAB PO SCH (08:48)
[2019-06-01] MEDS: Isosorbide Mononitrate (ER) 30 MG TAB PO SCH (08:48)
[2019-06-01] MEDS: Hydrochlorothiazide 25 MG TAB PO SCH (08:49)
[2019-06-01] MEDS: Cyanocobalamin (Vitamin B-12) 1,000 MCG TAB PO SCH (08:50)
[2019-06-01] MEDS: Betamethasone 0.1% Cream 15 GM TUBE TOP PRN ×2 (08:51→20:30)
[2019-06-01] MEDS: Mupirocin 2% Ointment 22 GM Tube TOP SCH ×2 (08:51→17:33)
[2019-06-01] MEDS: Vancomycin HCl 500 MG in Sodium Chloride 0.9% 100 ML IVPB SCH (11:45)
[2019-06-01] MEDS: Vancomycin HCl 750 MG in Sodium Chloride 0.9% 250 ML 250 ML IVPB SCH (11:47)
[2019-06-01] MEDS: Warfarin Sodium 3 MG TAB PO SCH (17:31)
[2019-06-01] MEDS: Simvastatin 40 MG TAB PO SCH (20:29)
[2019-06-02] MEDS: Mupirocin 2% Ointment 22 GM Tube TOP SCH ×4 (01:17→20:50)
[2019-06-02 05:38] LABS: Hemoglobin 11.4 g/dL (14.0-18.0); Platelet Count 316 thou/uL (130-400)
[2019-06-02 05:39] LABS: INR-International Normal Ratio 2.4; Prothrombin Time 25.9 SEC (12.0-14.7)
[2019-06-02] MEDS: Folic Acid 1 MG TAB PO SCH (08:45)
[2019-06-02] MEDS: Hydrochlorothiazide 25 MG TAB PO SCH (08:45)
[2019-06-02] MEDS: Aspirin Chewable 81 MG TAB PO SCH (08:46)
[2019-06-02] MEDS: Saccharomyces boulardii 250 MG CAP PO SCH ×2 (08:46→20:49)
[2019-06-02] MEDS: Famotidine 20 MG TAB PO SCH ×2 (08:47→20:49)
[2019-06-02] MEDS: Isosorbide Mononitrate (ER) 30 MG TAB PO SCH (08:47)
[2019-06-02] MEDS: Cyanocobalamin (Vitamin B-12) 1,000 MCG TAB PO SCH (08:47)
[2019-06-02] MEDS: Lisinopril 5 MG TAB PO SCH (08:47)
[2019-06-02 11:26] LABS: Vancomycin, Trough 15.4 ug/mL
[2019-06-02] MEDS: Vancomycin HCl 500 MG in Sodium Chloride 0.9% 100 ML IVPB SCH (11:30)
[2019-06-02] MEDS: Vancomycin HCl 750 MG in Sodium Chloride 0.9% 250 ML 250 ML IVPB SCH (11:31)
[2019-06-02] MEDS: Sodium Hypochlorite 0.25% Solution 480 ML BOT TOP SCH (12:14)
[2019-06-02] MEDS: Warfarin Sodium 3 MG TAB PO SCH (16:56)
[2019-06-02] MEDS: Simvastatin 40 MG TAB PO SCH (20:49)
[2019-06-03] MEDS: Cyanocobalamin (Vitamin B-12) 1,000 MCG TAB PO SCH (08:49)
[2019-06-03] MEDS: Famotidine 20 MG TAB PO SCH ×2 (08:49→21:17)
[2019-06-03] MEDS: Isosorbide Mononitrate (ER) 30 MG TAB PO SCH (08:49)
[2019-06-03] MEDS: Folic Acid 1 MG TAB PO SCH (08:49)
[2019-06-03] MEDS: Saccharomyces boulardii 250 MG CAP PO SCH ×2 (08:49→21:18)
[2019-06-03] MEDS: Aspirin Chewable 81 MG TAB PO SCH (08:49)
[2019-06-03] MEDS: Hydrochlorothiazide 25 MG TAB PO SCH (08:50)
[2019-06-03] MEDS: Lisinopril 5 MG TAB PO SCH (08:51)
[2019-06-03] MEDS: Vancomycin HCl 500 MG in Sodium Chloride 0.9% 100 ML IVPB SCH (11:53)
[2019-06-03] MEDS: Vancomycin HCl 750 MG in Sodium Chloride 0.9% 250 ML 250 ML IVPB SCH (11:54)
[2019-06-03] MEDS: Betamethasone 0.1% Cream 15 GM TUBE TOP PRN (12:13)
[2019-06-03] MEDS: Mupirocin 2% Ointment 22 GM Tube TOP SCH ×3 (12:14→21:18)
[2019-06-03] MEDS: Nystatin Powder 15 GM BOT TOP PRN (12:14)
[2019-06-03] MEDS: Warfarin Sodium 3 MG TAB PO SCH (17:20)
[2019-06-03] MEDS: Simvastatin 40 MG TAB PO SCH (21:19)
[2019-06-04] MEDS: Lisinopril 5 MG TAB PO SCH (09:03)
[2019-06-04] MEDS: Isosorbide Mononitrate (ER) 30 MG TAB PO SCH (09:03)
[2019-06-04] MEDS: Saccharomyces boulardii 250 MG CAP PO SCH ×2 (09:06→20:14)
[2019-06-04] MEDS: Folic Acid 1 MG TAB PO SCH (09:07)
[2019-06-04] MEDS: Hydrochlorothiazide 25 MG TAB PO SCH (09:07)
[2019-06-04] MEDS: Cyanocobalamin (Vitamin B-12) 1,000 MCG TAB PO SCH (09:07)
[2019-06-04] MEDS: Aspirin Chewable 81 MG TAB PO SCH (09:08)
[2019-06-04] MEDS: Famotidine 20 MG TAB PO SCH ×2 (09:09→20:14)
[2019-06-04] MEDS: Mupirocin 2% Ointment 22 GM Tube TOP SCH ×3 (09:11→20:14)
[2019-06-04] MEDS: Betamethasone 0.1% Cream 15 GM TUBE TOP PRN (09:12)
[2019-06-04 11:39] LABS: Hemoglobin 12.1 g/dL (14.0-18.0); Platelet Count 330 thou/uL (130-400)
[2019-06-04] MEDS: Vancomycin HCl 750 MG in Sodium Chloride 0.9% 250 ML 250 ML IVPB SCH (12:08)
[2019-06-04] MEDS: Vancomycin HCl 500 MG in Sodium Chloride 0.9% 100 ML IVPB SCH (12:16)
--- NOTE | 2019-06-04 15:16 | PRG ---
DATE OF SERVICE: 05/24/2019 SUBJECTIVE: The patient is having issues with constipation, having difficulty in bowel movement, relieved by Colace. He denies any complaints today. Vital signs have been stable. OBJECTIVE: VITAL SIGNS: Blood pressure of 105/60, temperature of 98.3, pulse of 79, RR of 18, O2 saturation 95% on room air. GENERAL: The patient is alert, oriented, not in respiratory distress. CHEST AND LUNGS: Symmetrical expansion. Clear to auscultation. HEART: Regular rate, rhythm. ABDOMEN: Flat, soft, nontender. Normoactive bowel sounds. Negative for deep or rebound tenderness. EXTREMITIES: Negative for swelling. Negative for Homans signs. PSYCH: Appropriate affect and demeanor. SKIN: Positive for stage IV full-thickness pressure ulcer measuring 10.7 x 10.1 x 4.2 with 5.3, undermining at 8 o'clock. Wound bed has red granulation. Fascia, tendon, and muscles are visible with serosanguineous drainage. LABORATORY DATA: Reviewed. ASSESSMENT: 1. Stage IV full-thickness decubitus ulcer, on wound VAC. 2. Methicillin-resistant Staphylococcus aureus, stage IV decubitus ulcer, on vancomycin. 3. Positive for Pseudomonas aeruginosa on wound culture, on Cipro p.o. day #3. 4. Ischemic cardiomyopathy. 5. Chronic atrial fibrillation, rate controlled on Coumadin, stable. 6. Hypertension, complicated with low blood pressure readings, blood pressure medicine adjusted. 7. Gait instability. He will continue with physical, occupational therapy. 8. Full code. Job ID: [id number] [facility]
--- NOTE | 2019-06-04 15:40 | PRG ---
DATE OF SERVICE: 06/03/2019 SUBJECTIVE: The patient denies any complaint. Appetite is stable. No recent falls. OBJECTIVE: VITAL SIGNS: Blood pressure 118/58, temperature 97.7, pulse of 79, RR of 20, O2 saturation 98% on room air. GENERAL: The patient is alert, oriented, not in respiratory distress. HEENT: Normocephalic, atraumatic. Pupils are equal, reactive to light. NECK: Supple. Negative for lymphadenopathy. CHEST AND LUNGS: Symmetrical expansion. HEART: Regular rate, rhythm. Negative for murmur. ABDOMEN: Obese, soft, nontender. Normoactive bowel sounds. EXTREMITIES: Negative for edema or cyanosis. Negative for Homans sign. SKIN: Positive for stage IV full-thickness pressure ulcer. Wound measurement 6 x 5.9 x 3.2 cm with 3.5, undermining toward 9 o'clock. Tendon and muscles are both visible with serous drainage on wound VAC. ASSESSMENT: 1. Stage IV full-thickness decubitus ulcer, on wound VAC. 2. Methicillin-resistant Staph aureus stage IV decubitus ulcer, on IV vancomycin. Wound culture grew Pseudomonas aeruginosa, rare in amount. Cipro was discontinued. 3. Ischemic cardiomyopathy. 4. Chronic atrial fibrillation, rate controlled on Coumadin, dosaging managed by Pharmacy. 5. Hypertension, complicated with hypotension. Adjusted lisinopril to 5 mg daily. Blood pressure have been stable. 6. Gait instability. Continue with physical and occupational therapy. 7. Full code. 8. Anticipate discharge in the next 4 weeks. Job ID: [id number]
[2019-06-04] MEDS: Warfarin Sodium 3 MG TAB PO SCH (17:29)
[2019-06-04] MEDS: Simvastatin 40 MG TAB PO SCH (20:14)
[2019-06-05 05:26] LABS: INR-International Normal Ratio 2.1; Prothrombin Time 23.3 SEC (12.0-14.7)
[2019-06-05 05:34] LABS: Hemoglobin 11.6 g/dL (14.0-18.0); Platelet Count 317 thou/uL (130-400)
[2019-06-05] MEDS: Cyanocobalamin (Vitamin B-12) 1,000 MCG TAB PO SCH (08:10)
[2019-06-05] MEDS: Lisinopril 5 MG TAB PO SCH (08:10)
[2019-06-05] MEDS: Saccharomyces boulardii 250 MG CAP PO SCH ×2 (08:10→20:53)
[2019-06-05] MEDS: Docusate 100 MG CAP PO PRN (08:10)
[2019-06-05] MEDS: Hydrochlorothiazide 25 MG TAB PO SCH (08:10)
[2019-06-05] MEDS: Isosorbide Mononitrate (ER) 30 MG TAB PO SCH (08:11)
[2019-06-05] MEDS: Famotidine 20 MG TAB PO SCH ×2 (08:11→20:54)
[2019-06-05] MEDS: Nystatin Powder 15 GM BOT TOP PRN (08:11)
[2019-06-05] MEDS: Folic Acid 1 MG TAB PO SCH (08:11)
[2019-06-05] MEDS: Mupirocin 2% Ointment 22 GM Tube TOP SCH ×3 (08:11→20:56)
[2019-06-05] MEDS: Aspirin Chewable 81 MG TAB PO SCH (08:11)
[2019-06-05] MEDS: Vancomycin HCl 750 MG in Sodium Chloride 0.9% 250 ML 250 ML IVPB SCH (12:19)
[2019-06-05] MEDS: Vancomycin HCl 500 MG in Sodium Chloride 0.9% 100 ML IVPB SCH (12:20)
[2019-06-05] MEDS: Sodium Hypochlorite 0.25% Solution 480 ML BOT TOP SCH (12:56)
[2019-06-05] MEDS: Warfarin Sodium 3 MG TAB PO SCH (16:58)
[2019-06-05] MEDS: Simvastatin 40 MG TAB PO SCH (20:54)
[2019-06-06] MEDS: Lisinopril 5 MG TAB PO SCH (08:58)
[2019-06-06] MEDS: Famotidine 20 MG TAB PO SCH ×2 (08:59→20:13)
[2019-06-06] MEDS: Folic Acid 1 MG TAB PO SCH (08:59)
[2019-06-06] MEDS: Saccharomyces boulardii 250 MG CAP PO SCH ×2 (08:59→20:13)
[2019-06-06] MEDS: Isosorbide Mononitrate (ER) 30 MG TAB PO SCH (08:59)
[2019-06-06] MEDS: Aspirin Chewable 81 MG TAB PO SCH (08:59)
[2019-06-06] MEDS: Hydrochlorothiazide 25 MG TAB PO SCH (08:59)
[2019-06-06] MEDS: Cyanocobalamin (Vitamin B-12) 1,000 MCG TAB PO SCH (09:00)
[2019-06-06] MEDS: Mupirocin 2% Ointment 22 GM Tube TOP SCH ×2 (09:02→14:27)
[2019-06-06 11:39] LABS: Vancomycin, Trough 14.9 ug/mL
[2019-06-06] MEDS: Vancomycin HCl 750 MG in Sodium Chloride 0.9% 250 ML 250 ML IVPB SCH (12:12)
[2019-06-06] MEDS: Vancomycin HCl 500 MG in Sodium Chloride 0.9% 100 ML IVPB SCH (12:13)
[2019-06-06] MEDS: Warfarin Sodium 3 MG TAB PO SCH (16:31)
[2019-06-06] MEDS: Simvastatin 40 MG TAB PO SCH (20:13)
[2019-06-07 05:33] LABS: #Basophils 0.2 thou/uL (0.0-0.2); #Eosinphils 1.8 thou/uL (0.0-0.7); #Lymphocytes 2.5 thou/uL (1.20-3.40); #Monocytes 0.6 thou/uL (0.11-0.59); #Neutrophils 6.4 thou/uL (1.40-6.50); %Basophils 1.5 % (0.0-1.0); %Eosinophils 15.5 % (0.0-10.0); %Monocytes 5.2 % (0.0-10.0); %Neutrophils 55.8 % (42.0-75.0); Hemoglobin 12.3 g/dL (14.0-18.0); Mean Corpuscular HGB CONC 30.8 g/dL (32.0-36.0); Mean Corpuscular Volume 90.7 fL (78.0-98.0); Mean Platelet Volume 6.4 fL (7.4-10.4); Platelet Count 324 thou/uL (130-400); RBC Distribution Width 16.1 % (11.5-14.5); Red Blood Cell (RBC) Count 4.41 mill/uL (4.70-6.10); White Blood Cell (WBC) Count 11.5 thou/uL (4.8-10.8)
[2019-06-07 05:43] LABS: ALT (SGPT) 13 U/L (8-55); AST (SGOT) 15 U/L (5-34); Albumin 3.5 g/dL (3.4-4.8); Alkaline Phosphatase 79 U/L (40-110); Anion Gap 14 mmol/L (10-20); BUN (Urea Nitrogen) 33 mg/dL (8.4-25.7); Bilirubin, Total 0.3 mg/dL (0.2-1.2); Calc. Creatinine Clearance 76 mL/min (70-130); Calcium 9.3 mg/dL (7.8-10.44); Carbon Dioxide 27 mmol/L (23-31); Chloride 102 mmol/L (98-107); Estimated GFR-MDRD 69; Globulin 3.9 g/dL (2.4-3.5); Glucose 102 mg/dL (83-110); Potassium 4.2 mmol/L (3.5-5.1); Protein, Total 7.4 g/dL (5.8-8.1); Sodium 139 mmol/L (136-145)
[2019-06-07] MEDS: Saccharomyces boulardii 250 MG CAP PO SCH ×2 (08:20→20:55)
[2019-06-07] MEDS: Lisinopril 5 MG TAB PO SCH (08:20)
[2019-06-07] MEDS: Cyanocobalamin (Vitamin B-12) 1,000 MCG TAB PO SCH (08:20)
[2019-06-07] MEDS: Famotidine 20 MG TAB PO SCH ×2 (08:21→20:55)
[2019-06-07] MEDS: Hydrochlorothiazide 25 MG TAB PO SCH (08:21)
[2019-06-07] MEDS: Isosorbide Mononitrate (ER) 30 MG TAB PO SCH (08:21)
[2019-06-07] MEDS: Aspirin Chewable 81 MG TAB PO SCH (08:21)
[2019-06-07] MEDS: Folic Acid 1 MG TAB PO SCH (08:21)
[2019-06-07] MEDS: Vancomycin HCl 500 MG in Sodium Chloride 0.9% 100 ML IVPB SCH (12:52)
[2019-06-07] MEDS: Vancomycin HCl 750 MG in Sodium Chloride 0.9% 250 ML 250 ML IVPB SCH (12:53)
[2019-06-07] MEDS: Sodium Hypochlorite 0.25% Solution 480 ML BOT TOP SCH (12:54)
[2019-06-07] MEDS: Warfarin Sodium 3 MG TAB PO SCH (17:21)
[2019-06-07] MEDS: Simvastatin 40 MG TAB PO SCH (20:55)
[2019-06-08 05:45] LABS: Hemoglobin 11.5 g/dL (14.0-18.0); Platelet Count 322 thou/uL (130-400)
[2019-06-08 05:48] LABS: INR-International Normal Ratio 2.1; Prothrombin Time 23.1 SEC (12.0-14.7)
[2019-06-08] MEDS: Lisinopril 5 MG TAB PO SCH (09:01)
[2019-06-08] MEDS: Hydrochlorothiazide 25 MG TAB PO SCH (09:05)
[2019-06-08] MEDS: Isosorbide Mononitrate (ER) 30 MG TAB PO SCH (09:05)
[2019-06-08] MEDS: Saccharomyces boulardii 250 MG CAP PO SCH ×2 (09:05→20:08)
[2019-06-08] MEDS: Famotidine 20 MG TAB PO SCH ×2 (09:06→20:08)
[2019-06-08] MEDS: Aspirin Chewable 81 MG TAB PO SCH (09:06)
[2019-06-08] MEDS: Folic Acid 1 MG TAB PO SCH (09:06)
[2019-06-08] MEDS: Cyanocobalamin (Vitamin B-12) 1,000 MCG TAB PO SCH (09:06)
[2019-06-08] MEDS: Betamethasone 0.1% Cream 15 GM TUBE TOP PRN (09:10)
[2019-06-08] MEDS: Vancomycin HCl 750 MG in Sodium Chloride 0.9% 250 ML 250 ML IVPB SCH (16:42)
[2019-06-08] MEDS: Warfarin Sodium 3 MG TAB PO SCH (17:22)
[2019-06-08] MEDS: Simvastatin 40 MG TAB PO SCH (20:08)
[2019-06-08] MEDS: Ciprofloxacin 500 MG TAB PO SCH (20:08)
[2019-06-08] MEDS: Doxycycline 100 MG CAP PO SCH (20:08)
[2019-06-09 05:29] LABS: INR-International Normal Ratio 2.1; Prothrombin Time 23.8 SEC (12.0-14.7)
[2019-06-09] MEDS: Lisinopril 5 MG TAB PO SCH (08:30)
[2019-06-09] MEDS: Isosorbide Mononitrate (ER) 30 MG TAB PO SCH (08:30)
[2019-06-09] MEDS: Doxycycline 100 MG CAP PO SCH ×2 (08:31→20:28)
[2019-06-09] MEDS: Ciprofloxacin 500 MG TAB PO SCH ×2 (08:31→20:28)
[2019-06-09] MEDS: Hydrochlorothiazide 25 MG TAB PO SCH (08:32)
[2019-06-09] MEDS: Aspirin Chewable 81 MG TAB PO SCH (08:33)
[2019-06-09] MEDS: Famotidine 20 MG TAB PO SCH ×2 (08:33→20:28)
[2019-06-09] MEDS: Saccharomyces boulardii 250 MG CAP PO SCH ×2 (08:33→20:28)
[2019-06-09] MEDS: Folic Acid 1 MG TAB PO SCH (08:33)
[2019-06-09] MEDS: Cyanocobalamin (Vitamin B-12) 1,000 MCG TAB PO SCH (08:34)
[2019-06-09] MEDS: Docusate 100 MG CAP PO PRN (08:38)
[2019-06-09] MEDS: Warfarin Sodium 3 MG TAB PO SCH (17:25)
[2019-06-09] MEDS: Simvastatin 40 MG TAB PO SCH (20:28)
[2019-06-09] MEDS ORDERED: Prevnar 13-Val Conj/PF 0.5 ML SYRINGE IM ONE (21:00)
[2019-06-09] MEDS ORDERED: FLU VACC TS2019-20(65YR UP)/PF 180 MCG/0.5 ML SYRINGE IM ONE (21:00)
[2019-06-10] MEDS: Cyanocobalamin (Vitamin B-12) 1,000 MCG TAB PO SCH (08:35)
[2019-06-10] MEDS: Ciprofloxacin 500 MG TAB PO SCH ×2 (08:35→20:01)
[2019-06-10] MEDS: Saccharomyces boulardii 250 MG CAP PO SCH ×2 (08:35→20:01)
[2019-06-10] MEDS: Hydrochlorothiazide 25 MG TAB PO SCH (08:35)
[2019-06-10] MEDS: Lisinopril 5 MG TAB PO SCH (08:36)
[2019-06-10] MEDS: Isosorbide Mononitrate (ER) 30 MG TAB PO SCH (08:36)
[2019-06-10] MEDS: Folic Acid 1 MG TAB PO SCH (08:36)
[2019-06-10] MEDS: Aspirin Chewable 81 MG TAB PO SCH (08:36)
[2019-06-10] MEDS: Docusate 100 MG CAP PO PRN (08:36)
[2019-06-10] MEDS: Doxycycline 100 MG CAP PO SCH ×2 (08:36→20:01)
[2019-06-10] MEDS: Famotidine 20 MG TAB PO SCH ×2 (08:36→20:01)
[2019-06-10] MEDS: Warfarin Sodium 3 MG TAB PO SCH (17:09)
[2019-06-10] MEDS: Simvastatin 40 MG TAB PO SCH (20:01)
[2019-06-11 05:53] LABS: Prothrombin Time 22.3 SEC (12.0-14.7)
[2019-06-11 05:54] LABS: Hemoglobin 11.1 g/dL (14.0-18.0); Platelet Count 326 thou/uL (130-400)
[2019-06-11] MEDS ORDERED: FLU VACC TS2019-20(65YR UP)/PF 180 MCG/0.5 ML SYRINGE IM ONE (07:45)
[2019-06-11] MEDS ORDERED: Famotidine 20 MG TAB ONE ×2 (09:30→20:08)
[2019-06-11] MEDS: Isosorbide Mononitrate (ER) 30 MG TAB PO SCH (09:39)
[2019-06-11] MEDS: Aspirin Chewable 81 MG TAB PO SCH (09:39)
[2019-06-11] MEDS: Famotidine 20 MG TAB PO SCH ×2 (09:39→20:10)
[2019-06-11] MEDS: Folic Acid 1 MG TAB PO SCH (09:39)
[2019-06-11] MEDS: Ciprofloxacin 500 MG TAB PO SCH ×2 (09:39→20:01)
[2019-06-11] MEDS: Doxycycline 100 MG CAP PO SCH ×2 (09:39→20:01)
[2019-06-11] MEDS: Hydrochlorothiazide 25 MG TAB PO SCH (09:39)
[2019-06-11] MEDS: Saccharomyces boulardii 250 MG CAP PO SCH ×2 (09:39→20:01)
[2019-06-11] MEDS: Cyanocobalamin (Vitamin B-12) 1,000 MCG TAB PO SCH (09:40)
[2019-06-11] MEDS: Lisinopril 5 MG TAB PO SCH (09:43)
[2019-06-11] MEDS: Warfarin Sodium 3 MG TAB PO SCH (17:34)
[2019-06-11] MEDS: Simvastatin 40 MG TAB PO SCH (20:00)
[2019-06-12 03:28] LABS: INR-International Normal Ratio 2.7; Prothrombin Time 28.7 SEC (12.0-14.7)
[2019-06-12] MEDS: Hydrochlorothiazide 25 MG TAB PO SCH (08:45)
[2019-06-12] MEDS: Folic Acid 1 MG TAB PO SCH (08:46)
[2019-06-12] MEDS: Docusate 100 MG CAP PO PRN (08:46)
[2019-06-12] MEDS: Ciprofloxacin 500 MG TAB PO SCH ×2 (08:47→20:37)
[2019-06-12] MEDS: Aspirin Chewable 81 MG TAB PO SCH (08:47)
[2019-06-12] MEDS: Cyanocobalamin (Vitamin B-12) 1,000 MCG TAB PO SCH (08:47)
[2019-06-12] MEDS: Saccharomyces boulardii 250 MG CAP PO SCH ×2 (08:47→20:38)
[2019-06-12] MEDS: Isosorbide Mononitrate (ER) 30 MG TAB PO SCH (08:47)
[2019-06-12] MEDS: Lisinopril 5 MG TAB PO SCH (08:47)
[2019-06-12] MEDS: Famotidine 20 MG TAB PO SCH ×2 (08:49→20:37)
[2019-06-12] MEDS: Doxycycline 100 MG CAP PO SCH ×2 (08:49→20:38)
[2019-06-12] MEDS: Warfarin Sodium 3 MG TAB PO SCH (16:40)
[2019-06-12] MEDS: Simvastatin 40 MG TAB PO SCH (20:37)
[2019-06-13 04:20] LABS: INR-International Normal Ratio 2.2; Prothrombin Time 24.5 SEC (12.0-14.7)
[2019-06-13] MEDS: Saccharomyces boulardii 250 MG CAP PO SCH ×2 (09:18→20:35)
[2019-06-13] MEDS: Aspirin Chewable 81 MG TAB PO SCH (09:18)
[2019-06-13] MEDS: Lisinopril 5 MG TAB PO SCH (09:18)
[2019-06-13] MEDS: Famotidine 20 MG TAB PO SCH ×2 (09:19→20:35)
[2019-06-13] MEDS: Isosorbide Mononitrate (ER) 30 MG TAB PO SCH (09:19)
[2019-06-13] MEDS: Hydrochlorothiazide 25 MG TAB PO SCH (09:19)
[2019-06-13] MEDS: Cyanocobalamin (Vitamin B-12) 1,000 MCG TAB PO SCH (09:19)
[2019-06-13] MEDS: Ciprofloxacin 500 MG TAB PO SCH ×2 (09:20→20:35)
[2019-06-13] MEDS: Docusate 100 MG CAP PO PRN (09:20)
[2019-06-13] MEDS: Folic Acid 1 MG TAB PO SCH (09:20)
[2019-06-13] MEDS: Doxycycline 100 MG CAP PO SCH ×2 (09:20→20:35)
[2019-06-13] MEDS: Warfarin Sodium 3 MG TAB PO SCH (16:32)
[2019-06-13] MEDS: Simvastatin 40 MG TAB PO SCH (20:34)
[2019-06-14 05:34] LABS: #Basophils 0.1 thou/uL (0.0-0.2); #Eosinphils 1.1 thou/uL (0.0-0.7); #Lymphocytes 2.3 thou/uL (1.20-3.40); #Monocytes 0.7 thou/uL (0.11-0.59); #Neutrophils 5.4 thou/uL (1.40-6.50); %Basophils 1.1 % (0.0-1.0); %Eosinophils 11.5 % (0.0-10.0); %Lymphocytes 23.6 % (21.0-51.0); %Monocytes 7.7 % (0.0-10.0); %Neutrophils 56.1 % (42.0-75.0); Hemoglobin 11.6 g/dL (14.0-18.0); Mean Corpuscular HGB CONC 31.5 g/dL (32.0-36.0); Mean Corpuscular Hemoglobin 28.3 pg (27.0-31.0); Mean Corpuscular Volume 89.7 fL (78.0-98.0); Mean Platelet Volume 6.4 fL (7.4-10.4); Platelet Count 310 thou/uL (130-400); RBC Distribution Width 16.2 % (11.5-14.5); Red Blood Cell (RBC) Count 4.12 mill/uL (4.70-6.10); White Blood Cell (WBC) Count 9.5 thou/uL (4.8-10.8)
[2019-06-14 05:37] LABS: INR-International Normal Ratio 1.9; Prothrombin Time 21.7 SEC (12.0-14.7)
[2019-06-14 05:45] LABS: ALT (SGPT) 15 U/L (8-55); AST (SGOT) 15 U/L (5-34); Albumin 3.3 g/dL (3.4-4.8); Alkaline Phosphatase 77 U/L (40-110); Anion Gap 13 mmol/L (10-20); BUN (Urea Nitrogen) 40 mg/dL (8.4-25.7); Bilirubin, Total 0.3 mg/dL (0.2-1.2); Calc. Creatinine Clearance 82 mL/min (70-130); Carbon Dioxide 28 mmol/L (23-31); Chloride 102 mmol/L (98-107); Estimated GFR-MDRD 71; Globulin 3.4 g/dL (2.4-3.5); Glucose 101 mg/dL (83-110); Protein, Total 6.7 g/dL (5.8-8.1); Sodium 139 mmol/L (136-145)
[2019-06-14] MEDS: Saccharomyces boulardii 250 MG CAP PO SCH ×2 (09:16→20:22)
[2019-06-14] MEDS: Lisinopril 5 MG TAB PO SCH (09:17)
[2019-06-14] MEDS: Aspirin Chewable 81 MG TAB PO SCH (09:17)
[2019-06-14] MEDS: Ciprofloxacin 500 MG TAB PO SCH ×2 (09:17→20:22)
[2019-06-14] MEDS: Cyanocobalamin (Vitamin B-12) 1,000 MCG TAB PO SCH (09:17)
[2019-06-14] MEDS: Doxycycline 100 MG CAP PO SCH ×2 (09:17→20:22)
[2019-06-14] MEDS: Hydrochlorothiazide 25 MG TAB PO SCH (09:19)
[2019-06-14] MEDS: Famotidine 20 MG TAB PO SCH ×2 (09:19→20:22)
[2019-06-14] MEDS: Folic Acid 1 MG TAB PO SCH (09:19)
[2019-06-14] MEDS: Isosorbide Mononitrate (ER) 30 MG TAB PO SCH (09:21)
[2019-06-14] MEDS: Warfarin Sodium 3 MG TAB PO SCH (18:20)
[2019-06-14] MEDS: Simvastatin 40 MG TAB PO SCH (20:22)
[2019-06-15 05:34] LABS: INR-International Normal Ratio 1.8; Prothrombin Time 21.2 SEC (12.0-14.7)
[2019-06-15] MEDS: Hydrochlorothiazide 25 MG TAB PO SCH (08:22)
[2019-06-15] MEDS: Famotidine 20 MG TAB PO SCH ×2 (08:23→21:12)
[2019-06-15] MEDS: Saccharomyces boulardii 250 MG CAP PO SCH ×2 (08:23→21:12)
[2019-06-15] MEDS: Lisinopril 5 MG TAB PO SCH (08:23)
[2019-06-15] MEDS: Doxycycline 100 MG CAP PO SCH ×2 (08:23→21:12)
[2019-06-15] MEDS: Cyanocobalamin (Vitamin B-12) 1,000 MCG TAB PO SCH (08:24)
[2019-06-15] MEDS: Aspirin Chewable 81 MG TAB PO SCH (08:24)
[2019-06-15] MEDS: Docusate 100 MG CAP PO PRN (08:24)
[2019-06-15] MEDS: Folic Acid 1 MG TAB PO SCH (08:25)
[2019-06-15] MEDS: Ciprofloxacin 500 MG TAB PO SCH ×2 (08:25→21:13)
[2019-06-15] MEDS: Isosorbide Mononitrate (ER) 30 MG TAB PO SCH (08:25)
[2019-06-15] MEDS: Betamethasone 0.1% Cream 15 GM TUBE TOP PRN (08:29)
[2019-06-15] MEDS: Warfarin Sodium 2 MG TAB PO SCH (17:06)
[2019-06-15] MEDS: Simvastatin 40 MG TAB PO SCH (21:12)
[2019-06-16 05:49] LABS: INR-International Normal Ratio 1.8; Prothrombin Time 21.6 SEC (12.0-14.7)
[2019-06-16] MEDS: Saccharomyces boulardii 250 MG CAP PO SCH ×2 (08:46→20:37)
[2019-06-16] MEDS: Folic Acid 1 MG TAB PO SCH (08:47)
[2019-06-16] MEDS: Hydrochlorothiazide 25 MG TAB PO SCH (08:47)
[2019-06-16] MEDS: Isosorbide Mononitrate (ER) 30 MG TAB PO SCH (08:47)
[2019-06-16] MEDS: Aspirin Chewable 81 MG TAB PO SCH (08:48)
[2019-06-16] MEDS: Lisinopril 5 MG TAB PO SCH (08:48)
[2019-06-16] MEDS: Ciprofloxacin 500 MG TAB PO SCH ×2 (08:48→20:37)
[2019-06-16] MEDS: Famotidine 20 MG TAB PO SCH ×2 (08:49→20:37)
[2019-06-16] MEDS: Doxycycline 100 MG CAP PO SCH ×2 (08:49→20:37)
[2019-06-16] MEDS: Cyanocobalamin (Vitamin B-12) 1,000 MCG TAB PO SCH (08:49)
[2019-06-16] MEDS: Warfarin Sodium 2 MG TAB PO SCH (15:56)
[2019-06-16] MEDS: Simvastatin 40 MG TAB PO SCH (20:37)
[2019-06-17 05:24] LABS: Hemoglobin 11.6 g/dL (14.0-18.0); Platelet Count 310 thou/uL (130-400)
[2019-06-17 05:25] LABS: INR-International Normal Ratio 2.2; Prothrombin Time 24.2 SEC (12.0-14.7)
[2019-06-17] MEDS: Aspirin Chewable 81 MG TAB PO SCH (09:12)
[2019-06-17] MEDS: Hydrochlorothiazide 25 MG TAB PO SCH (09:12)
[2019-06-17] MEDS: Doxycycline 100 MG CAP PO SCH ×2 (09:13→20:55)
[2019-06-17] MEDS: Saccharomyces boulardii 250 MG CAP PO SCH ×2 (09:13→20:55)
[2019-06-17] MEDS: Cyanocobalamin (Vitamin B-12) 1,000 MCG TAB PO SCH (09:14)
[2019-06-17] MEDS: Folic Acid 1 MG TAB PO SCH (09:14)
[2019-06-17] MEDS: Lisinopril 5 MG TAB PO SCH (09:14)
[2019-06-17] MEDS: Isosorbide Mononitrate (ER) 30 MG TAB PO SCH (09:15)
[2019-06-17] MEDS: Ciprofloxacin 500 MG TAB PO SCH ×2 (09:15→20:55)
[2019-06-17] MEDS: Famotidine 20 MG TAB PO SCH ×2 (09:15→20:55)
[2019-06-17] MEDS: Warfarin Sodium 2 MG TAB PO SCH (17:18)
[2019-06-17] MEDS: Simvastatin 40 MG TAB PO SCH (20:55)
[2019-06-18] MEDS: Doxycycline 100 MG CAP PO SCH ×2 (08:22→19:42)
[2019-06-18] MEDS: Isosorbide Mononitrate (ER) 30 MG TAB PO SCH (08:22)
[2019-06-18] MEDS: Cyanocobalamin (Vitamin B-12) 1,000 MCG TAB PO SCH (08:23)
[2019-06-18] MEDS: Saccharomyces boulardii 250 MG CAP PO SCH ×2 (08:23→19:43)
[2019-06-18] MEDS: Ciprofloxacin 500 MG TAB PO SCH ×2 (08:23→19:43)
[2019-06-18] MEDS: Hydrochlorothiazide 25 MG TAB PO SCH (08:24)
[2019-06-18] MEDS: Folic Acid 1 MG TAB PO SCH (08:24)
[2019-06-18] MEDS: Lisinopril 5 MG TAB PO SCH (08:25)
[2019-06-18] MEDS: Famotidine 20 MG TAB PO SCH ×2 (08:25→19:43)
[2019-06-18] MEDS: Aspirin Chewable 81 MG TAB PO SCH (08:26)
[2019-06-18] MEDS: Warfarin Sodium 2 MG TAB PO SCH (17:32)
[2019-06-18] MEDS: Simvastatin 40 MG TAB PO SCH (19:42)
[2019-06-19] MEDS: Hydrochlorothiazide 25 MG TAB PO SCH (09:08)
[2019-06-19] MEDS: Isosorbide Mononitrate (ER) 30 MG TAB PO SCH (09:08)
[2019-06-19] MEDS: Saccharomyces boulardii 250 MG CAP PO SCH ×2 (09:08→20:48)
[2019-06-19] MEDS: Famotidine 20 MG TAB PO SCH ×2 (09:09→20:49)
[2019-06-19] MEDS: Lisinopril 5 MG TAB PO SCH (09:09)
[2019-06-19] MEDS: Folic Acid 1 MG TAB PO SCH (09:09)
[2019-06-19] MEDS: Cyanocobalamin (Vitamin B-12) 1,000 MCG TAB PO SCH (09:09)
[2019-06-19] MEDS: Aspirin Chewable 81 MG TAB PO SCH (09:10)
[2019-06-19] MEDS: Warfarin Sodium 2 MG TAB PO SCH (17:14)
--- NOTE | 2019-06-19 19:39 | PRG ---
DATE OF SERVICE: 06/16/2019 SUBJECTIVE: The patient is being seen for routine evaluation. He denies any concerns. His pain is tolerable. His wound is getting better. The patient was recently evaluated by speech for concerns regarding memory loss. According to notes, the patient is having difficulty with giving accurate information, he was not able to remember simple direction or task. He has difficulty using telephone in his room correctly. The patient also has distraction with attention activities. The patient required maximum cues and redirection to stay on task to find additional words. He showed cognitive deficits on language. The patient demonstrated mild receptive aphasia following single step direction using Baltazar Cognitive Assessment. The patient has moderate expressive aphasia, both manifested on verbal, written, repetitive, automatic speech, naming and word finding. He has moderate impairment on short-term memory. He was unable to recall 4/5 words given to him after 5 minutes delay. According to nurses, the patient had difficulty remembering simple directions and information they provided to him during daily care. He has moderate impairment with problem solving and reasoning. Unaware of his deficit in receptive and expressive language. He has moderate impairment with safety awareness. Demonstrating difficulty in recalling important information to prevent falls and other health related issues. The patient requires multiple redirect and cues to follow safety information. The patient is able to read and write and operate television. However, the patient is not communicating his health needs to the nurses when his alarm goes off. The patient is not demonstrating proper wound care. The patient demonstrated moderate impairment on executive function due to difficulty focusing on his task during evaluation. He has difficulty with visual perception and difficulty following attention task. OBJECTIVE: VITAL SIGNS: Blood pressure 126/84, O2 saturation 95 on room air, pulse of 86, and temperature 97.6. GENERAL: The patient is alert and oriented, not in respiratory distress. HEENT: Normocephalic and atraumatic. Pupils equal, reactive to light. NECK: Supple. Negative for lymphadenopathy. CHEST AND LUNGS: Symmetrical expansion. Clear to auscultation. HEART: Regular rate and rhythm. Negative for murmur, rubs, or gallops. ABDOMEN: Globular, soft, nontender. Negative for CVA tenderness. SKIN: Positive for stage IV full-thickness pressure ulcer, wound measurement 6.4 x 3.2 x 3.4, no tunneling. Wound bed description showed red granulation, fascia, tendon, and muscles are visible. Noticeable 90% granulation. PSYCH: No homicidal or suicidal ideations ASSESSMENT: 1. Stage IV full-thickness decubitus ulcer on wound VAC. 2. Methicillin-resistant staphylococcus aureus on stage IV decubitus ulcer on IV vancomycin. 3. Dementia. Based on assessment on language, receptive and expressive language and cognitive assessment base from orientation, memory, and problem solving/ reasoning. 4. Ischemic cardiomyopathy. 5. Chronic atrial fibrillation, rate controlled on Coumadin. The dose is being managed by Pharmacy. 6. Hypertension complicated by hypotension. Adjusted blood pressure medicine. 7. Gait instability. 8. Full code. 9. Prepare for discharge planning for a [facility] for wound care versus home with home health. Job ID: [id number] [id number]
[2019-06-19] MEDS: Simvastatin 40 MG TAB PO SCH (20:49)
[2019-06-20 05:39] LABS: Hemoglobin 10.8 g/dL (14.0-18.0); Platelet Count 277 thou/uL (130-400)
[2019-06-20 05:40] LABS: INR-International Normal Ratio 2.9; Prothrombin Time 30.1 SEC (12.0-14.7)
[2019-06-20] MEDS: Saccharomyces boulardii 250 MG CAP PO SCH ×2 (09:24→20:49)
[2019-06-20] MEDS: Hydrochlorothiazide 25 MG TAB PO SCH (09:34)
[2019-06-20] MEDS: Famotidine 20 MG TAB PO SCH ×2 (09:35→20:50)
[2019-06-20] MEDS: Folic Acid 1 MG TAB PO SCH (09:36)
[2019-06-20] MEDS: Isosorbide Mononitrate (ER) 30 MG TAB PO SCH (09:36)
[2019-06-20] MEDS: Aspirin Chewable 81 MG TAB PO SCH (09:37)
[2019-06-20] MEDS: Cyanocobalamin (Vitamin B-12) 1,000 MCG TAB PO SCH (09:37)
[2019-06-20] MEDS: Lisinopril 5 MG TAB PO SCH (12:28)
[2019-06-20] MEDS: Warfarin Sodium 2 MG TAB PO SCH (17:09)
[2019-06-20] MEDS: Simvastatin 40 MG TAB PO SCH (20:49)
[2019-06-21 05:33] LABS: #Basophils 0.1 thou/uL (0.0-0.2); #Eosinphils 0.9 thou/uL (0.0-0.7); #Monocytes 0.8 thou/uL (0.11-0.59); #Neutrophils 7.1 thou/uL (1.40-6.50); %Basophils 1.2 % (0.0-1.0); %Eosinophils 8.3 % (0.0-10.0); %Lymphocytes 18.2 % (21.0-51.0); %Monocytes 7.4 % (0.0-10.0); %Neutrophils 64.9 % (42.0-75.0); Hemoglobin 11.4 g/dL (14.0-18.0); Mean Corpuscular HGB CONC 30.8 g/dL (32.0-36.0); Mean Corpuscular Hemoglobin 27.7 pg (27.0-31.0); Mean Corpuscular Volume 89.9 fL (78.0-98.0); Mean Platelet Volume 6.9 fL (7.4-10.4); Platelet Count 290 thou/uL (130-400); RBC Distribution Width 16.2 % (11.5-14.5)
[2019-06-21 05:41] LABS: ALT (SGPT) 17 U/L (8-55); AST (SGOT) 15 U/L (5-34); Albumin 3.2 g/dL (3.4-4.8); Alkaline Phosphatase 72 U/L (40-110); Anion Gap 12 mmol/L (10-20); BUN (Urea Nitrogen) 31 mg/dL (8.4-25.7); Bilirubin, Total 0.3 mg/dL (0.2-1.2); Calc. Creatinine Clearance 81 mL/min (70-130); Calcium 8.8 mg/dL (7.8-10.44); Carbon Dioxide 26 mmol/L (23-31); Chloride 104 mmol/L (98-107); Estimated GFR-MDRD 71; Globulin 3.3 g/dL (2.4-3.5); Glucose 97 mg/dL (83-110); Protein, Total 6.5 g/dL (5.8-8.1); Sodium 138 mmol/L (136-145)
[2019-06-21] MEDS: Hydrochlorothiazide 25 MG TAB PO SCH (08:45)
[2019-06-21] MEDS: Folic Acid 1 MG TAB PO SCH (08:45)
[2019-06-21] MEDS: Lisinopril 5 MG TAB PO SCH (08:46)
[2019-06-21] MEDS: Aspirin Chewable 81 MG TAB PO SCH (08:46)
[2019-06-21] MEDS: Saccharomyces boulardii 250 MG CAP PO SCH ×2 (08:46→20:55)
[2019-06-21] MEDS: Cyanocobalamin (Vitamin B-12) 1,000 MCG TAB PO SCH (08:46)
[2019-06-21] MEDS: Famotidine 20 MG TAB PO SCH ×2 (08:47→20:55)
[2019-06-21] MEDS: Isosorbide Mononitrate (ER) 30 MG TAB PO SCH (08:47)
[2019-06-21] MEDS: Warfarin Sodium 2 MG TAB PO SCH (17:40)
[2019-06-21] MEDS: Simvastatin 40 MG TAB PO SCH (20:55)
[2019-06-22 05:35] LABS: INR-International Normal Ratio 2.7; Prothrombin Time 28.2 SEC (12.0-14.7)
[2019-06-22] MEDS: Saccharomyces boulardii 250 MG CAP PO SCH ×2 (09:23→20:02)
[2019-06-22] MEDS: Hydrochlorothiazide 25 MG TAB PO SCH (09:23)
[2019-06-22] MEDS: Cyanocobalamin (Vitamin B-12) 1,000 MCG TAB PO SCH (09:24)
[2019-06-22] MEDS: Lisinopril 5 MG TAB PO SCH (09:24)
[2019-06-22] MEDS: Aspirin Chewable 81 MG TAB PO SCH (09:24)
[2019-06-22] MEDS: Folic Acid 1 MG TAB PO SCH (09:25)
[2019-06-22] MEDS: Isosorbide Mononitrate (ER) 30 MG TAB PO SCH (09:25)
[2019-06-22] MEDS: Famotidine 20 MG TAB PO SCH ×2 (09:25→20:02)
[2019-06-22] MEDS: Warfarin Sodium 2 MG TAB PO SCH (17:17)
[2019-06-22] MEDS: Simvastatin 40 MG TAB PO SCH (20:02)
[2019-06-23 04:39] LABS: Hemoglobin 11.6 g/dL (14.0-18.0); Platelet Count 314 thou/uL (130-400)
[2019-06-23 04:45] LABS: INR-International Normal Ratio 3.4; Prothrombin Time 33.7 SEC (12.0-14.7)
[2019-06-23] MEDS: Lisinopril 5 MG TAB PO SCH (08:56)
[2019-06-23] MEDS: Aspirin Chewable 81 MG TAB PO SCH (08:56)
[2019-06-23] MEDS: Cyanocobalamin (Vitamin B-12) 1,000 MCG TAB PO SCH (08:56)
[2019-06-23] MEDS: Folic Acid 1 MG TAB PO SCH (08:56)
[2019-06-23] MEDS: Hydrochlorothiazide 25 MG TAB PO SCH (08:57)
[2019-06-23] MEDS: Famotidine 20 MG TAB PO SCH ×2 (08:57→20:16)
[2019-06-23] MEDS: Saccharomyces boulardii 250 MG CAP PO SCH ×2 (08:57→20:15)
[2019-06-23] MEDS: Isosorbide Mononitrate (ER) 30 MG TAB PO SCH (08:57)
[2019-06-23] MEDS ORDERED: Warfarin Sodium 2 MG TAB PO SCH (17:00)
[2019-06-23] MEDS: Simvastatin 40 MG TAB PO SCH (20:15)
[2019-06-24 06:05] LABS: INR-International Normal Ratio 3.2; Prothrombin Time 32.5 SEC (12.0-14.7)
[2019-06-24] MEDS: Lisinopril 5 MG TAB PO SCH (09:01)
[2019-06-24] MEDS: Hydrochlorothiazide 25 MG TAB PO SCH (09:02)
[2019-06-24] MEDS: Aspirin Chewable 81 MG TAB PO SCH ×2 (09:02→09:03)
[2019-06-24] MEDS: Cyanocobalamin (Vitamin B-12) 1,000 MCG TAB PO SCH (09:03)
[2019-06-24] MEDS: Saccharomyces boulardii 250 MG CAP PO SCH ×2 (09:03→20:30)
[2019-06-24] MEDS: Folic Acid 1 MG TAB PO SCH (09:03)
[2019-06-24] MEDS: Isosorbide Mononitrate (ER) 30 MG TAB PO SCH (09:03)
[2019-06-24] MEDS: Famotidine 20 MG TAB PO SCH ×2 (09:04→20:30)
[2019-06-24] MEDS: Simvastatin 40 MG TAB PO SCH (20:30)
[2019-06-25 06:03] LABS: INR-International Normal Ratio 2.3; Prothrombin Time 25.4 SEC (12.0-14.7)
[2019-06-25] MEDS: Isosorbide Mononitrate (ER) 30 MG TAB PO SCH (08:26)
[2019-06-25] MEDS: Folic Acid 1 MG TAB PO SCH (08:26)
[2019-06-25] MEDS: Lisinopril 5 MG TAB PO SCH (08:26)
[2019-06-25] MEDS: Cyanocobalamin (Vitamin B-12) 1,000 MCG TAB PO SCH (08:27)
[2019-06-25] MEDS: Hydrochlorothiazide 25 MG TAB PO SCH (08:27)
[2019-06-25] MEDS: Famotidine 20 MG TAB PO SCH ×2 (08:27→20:31)
[2019-06-25] MEDS: Saccharomyces boulardii 250 MG CAP PO SCH ×2 (08:27→20:32)
[2019-06-25] MEDS: Aspirin Chewable 81 MG TAB PO SCH (08:28)
[2019-06-25] MEDS ORDERED: Warfarin Sodium 3 MG TAB PO SCH ×2 (17:00)
[2019-06-25] MEDS: Simvastatin 40 MG TAB PO SCH (20:31)
[2019-06-26 04:48] LABS: INR-International Normal Ratio 2.1; Prothrombin Time 23.5 SEC (12.0-14.7)
[2019-06-26 05:15] LABS: Hemoglobin 11.8 g/dL (14.0-18.0); Platelet Count 275 thou/uL (130-400)
[2019-06-26] MEDS: Aspirin Chewable 81 MG TAB PO SCH (08:49)
[2019-06-26] MEDS: Famotidine 20 MG TAB PO SCH ×2 (08:49→20:08)
[2019-06-26] MEDS: Cyanocobalamin (Vitamin B-12) 1,000 MCG TAB PO SCH (08:49)
[2019-06-26] MEDS: Hydrochlorothiazide 25 MG TAB PO SCH (08:49)
[2019-06-26] MEDS: Saccharomyces boulardii 250 MG CAP PO SCH ×2 (08:49→20:08)
[2019-06-26] MEDS: Lisinopril 5 MG TAB PO SCH (08:49)
[2019-06-26] MEDS: Folic Acid 1 MG TAB PO SCH (08:49)
[2019-06-26] MEDS: Isosorbide Mononitrate (ER) 30 MG TAB PO SCH (08:49)
[2019-06-26] MEDS ORDERED: Warfarin Sodium 2 MG TAB PO SCH (17:00)
[2019-06-26] MEDS: Simvastatin 40 MG TAB PO SCH (20:08)
[2019-06-27 05:06] LABS: INR-International Normal Ratio 1.8; Prothrombin Time 21.1 SEC (12.0-14.7)
[2019-06-27] MEDS: Aspirin Chewable 81 MG TAB PO SCH (09:38)
[2019-06-27] MEDS: Famotidine 20 MG TAB PO SCH ×2 (09:39→21:05)
[2019-06-27] MEDS: Saccharomyces boulardii 250 MG CAP PO SCH ×2 (09:39→21:05)
[2019-06-27] MEDS: Lisinopril 5 MG TAB PO SCH (09:39)
[2019-06-27] MEDS: Isosorbide Mononitrate (ER) 30 MG TAB PO SCH (09:39)
[2019-06-27] MEDS: Cyanocobalamin (Vitamin B-12) 1,000 MCG TAB PO SCH (09:39)
[2019-06-27] MEDS: Hydrochlorothiazide 25 MG TAB PO SCH (09:39)
[2019-06-27] MEDS: Folic Acid 1 MG TAB PO SCH (09:39)
[2019-06-27] MEDS ORDERED: Warfarin Sodium 2 MG TAB PO SCH (17:00)
[2019-06-27] MEDS: Warfarin Sodium 5 MG TAB PO SCH (17:22)
[2019-06-27] MEDS: Simvastatin 40 MG TAB PO SCH (21:05)
[2019-06-28 04:21] LABS: #Basophils 0.1 thou/uL (0.0-0.2); #Eosinphils 0.9 thou/uL (0.0-0.7); #Lymphocytes 2.4 thou/uL (1.20-3.40); #Monocytes 0.7 thou/uL (0.11-0.59); #Neutrophils 5.4 thou/uL (1.40-6.50); %Basophils 1.2 % (0.0-1.0); %Eosinophils 9.2 % (0.0-10.0); %Lymphocytes 24.9 % (21.0-51.0); %Monocytes 7.3 % (0.0-10.0); %Neutrophils 57.4 % (42.0-75.0); Hemoglobin 11.7 g/dL (14.0-18.0); Mean Corpuscular HGB CONC 31.5 g/dL (32.0-36.0); Mean Platelet Volume 6.8 fL (7.4-10.4); Platelet Count 314 thou/uL (130-400); Red Blood Cell (RBC) Count 4.16 mill/uL (4.70-6.10); White Blood Cell (WBC) Count 9.5 thou/uL (4.8-10.8)
[2019-06-28 04:32] LABS: ALT (SGPT) 13 U/L (8-55); AST (SGOT) 14 U/L (5-34); Albumin 3.3 g/dL (3.4-4.8); Alkaline Phosphatase 73 U/L (40-110); Anion Gap 13 mmol/L (10-20); BUN (Urea Nitrogen) 33 mg/dL (8.4-25.7); Bilirubin, Total 0.3 mg/dL (0.2-1.2); Calc. Creatinine Clearance 78 mL/min (70-130); Carbon Dioxide 26 mmol/L (23-31); Chloride 102 mmol/L (98-107); Estimated GFR-MDRD 65; Globulin 3.5 g/dL (2.4-3.5); Glucose 100 mg/dL (83-110); Potassium 3.7 mmol/L (3.5-5.1); Protein, Total 6.8 g/dL (5.8-8.1); Sodium 137 mmol/L (136-145)
[2019-06-28 04:47] LABS: Prothrombin Time 22.5 SEC (12.0-14.7)
[2019-06-28] MEDS: Famotidine 20 MG TAB PO SCH ×2 (09:00→19:50)
[2019-06-28] MEDS: Aspirin Chewable 81 MG TAB PO SCH (09:00)
[2019-06-28] MEDS: Saccharomyces boulardii 250 MG CAP PO SCH ×2 (09:00→19:50)
[2019-06-28] MEDS: Folic Acid 1 MG TAB PO SCH (09:01)
[2019-06-28] MEDS: Lisinopril 5 MG TAB PO SCH (09:01)
[2019-06-28] MEDS: Hydrochlorothiazide 25 MG TAB PO SCH (09:01)
[2019-06-28] MEDS: Cyanocobalamin (Vitamin B-12) 1,000 MCG TAB PO SCH (09:06)
[2019-06-28] MEDS: Isosorbide Mononitrate (ER) 30 MG TAB PO SCH (09:06)
[2019-06-28 12:28] VITALS: BMI 29.1
[2019-06-28] MEDS: Warfarin Sodium 5 MG TAB PO SCH (17:05)
[2019-06-28] MEDS: Simvastatin 40 MG TAB PO SCH (19:50)
[2019-06-29 05:21] LABS: INR-International Normal Ratio 2.5; Prothrombin Time 26.9 SEC (12.0-14.7)
[2019-06-29 05:25] LABS: Hemoglobin 11.1 g/dL (14.0-18.0); Platelet Count 286 thou/uL (130-400)
[2019-06-29] MEDS: Lisinopril 5 MG TAB PO SCH (08:27)
[2019-06-29] MEDS: Isosorbide Mononitrate (ER) 30 MG TAB PO SCH (08:27)
[2019-06-29] MEDS: Saccharomyces boulardii 250 MG CAP PO SCH ×2 (08:28→21:02)
[2019-06-29] MEDS: Cyanocobalamin (Vitamin B-12) 1,000 MCG TAB PO SCH (08:28)
[2019-06-29] MEDS: Hydrochlorothiazide 25 MG TAB PO SCH (08:28)
[2019-06-29] MEDS: Aspirin Chewable 81 MG TAB PO SCH (08:28)
[2019-06-29] MEDS: Folic Acid 1 MG TAB PO SCH (08:28)
[2019-06-29] MEDS: Famotidine 20 MG TAB PO SCH ×2 (08:28→21:02)
[2019-06-29] MEDS: Warfarin Sodium 5 MG TAB PO SCH (17:04)
[2019-06-29] MEDS: Simvastatin 40 MG TAB PO SCH (21:01)
[2019-06-30 05:35] LABS: INR-International Normal Ratio 2.3; Prothrombin Time 25.5 SEC (12.0-14.7)
[2019-06-30] MEDS: Folic Acid 1 MG TAB PO SCH (09:34)
[2019-06-30] MEDS: Lisinopril 5 MG TAB PO SCH (09:34)
[2019-06-30] MEDS: Famotidine 20 MG TAB PO SCH ×2 (09:34→20:40)
[2019-06-30] MEDS: Saccharomyces boulardii 250 MG CAP PO SCH ×2 (09:34→20:40)
[2019-06-30] MEDS: Aspirin Chewable 81 MG TAB PO SCH (09:34)
[2019-06-30] MEDS: Isosorbide Mononitrate (ER) 30 MG TAB PO SCH (09:35)
[2019-06-30] MEDS: Hydrochlorothiazide 25 MG TAB PO SCH (09:35)
[2019-06-30] MEDS: Cyanocobalamin (Vitamin B-12) 1,000 MCG TAB PO SCH (09:36)
[2019-06-30] MEDS: Warfarin Sodium 5 MG TAB PO SCH (17:11)
[2019-06-30] MEDS: Simvastatin 40 MG TAB PO SCH (20:40)
[2019-07-01 05:13] LABS: INR-International Normal Ratio 2.7; Prothrombin Time 28.8 SEC (12.0-14.7)
[2019-07-01 06:35] VITALS: TEMP 97.9
[2019-07-01] MEDS: Isosorbide Mononitrate (ER) 30 MG TAB PO SCH (08:27)
[2019-07-01] MEDS: Lisinopril 5 MG TAB PO SCH (08:27)
[2019-07-01] MEDS: Famotidine 20 MG TAB PO SCH (08:27)
[2019-07-01] MEDS: Aspirin Chewable 81 MG TAB PO SCH (08:27)
[2019-07-01] MEDS: Hydrochlorothiazide 25 MG TAB PO SCH (08:28)
[2019-07-01] MEDS: Folic Acid 1 MG TAB PO SCH (08:28)
[2019-07-01] MEDS: Saccharomyces boulardii 250 MG CAP PO SCH (08:28)
[2019-07-01 08:30] VITALS: BP 139/69
[2019-07-01] MEDS: Cyanocobalamin (Vitamin B-12) 1,000 MCG TAB PO SCH (08:30)
== END 2019-07-01 10:30 | DRG 593 ==
LOC: BURMED 18:20
PROVIDERS: ADMIT Family Medicine; ATTEND Family Medicine
DX: L89.154 Pressure ulcer of sacral region, stage 4 (principal); I48.20 Chronic atrial fibrillation, unspecified; R47.01 Aphasia; R26.89 Other abnormalities of gait and mobility; L89.123 Pressure ulcer of left upper back, stage 3; R53.81 Other malaise; I11.0 Hypertensive heart disease with heart failure; I50.9 Heart failure, unspecified; E78.5 Hyperlipidemia, unspecified; I25.5 Ischemic cardiomyopathy; B95.62 Methicillin resistant Staphylococcus aureus infection as the cause of diseases classified elsewhere; F03.90 Unspecified dementia, unspecified severity, without behavioral disturbance, psychotic disturbance, mood disturbance, and anxiety; I95.9 Hypotension, unspecified; K59.00 Constipation, unspecified; Z90.49 Acquired absence of other specified parts of digestive tract; Z90.89 Acquired absence of other organs; Z79.82 Long term (current) use of aspirin; Z79.899 Other long term (current) drug therapy; Z88.0 Allergy status to penicillin
CPT/HCPCS: 36415; 36416; 80053; 80202; 85014; 85018; 85025; 85048; 85049; 85610; 86140; 87070; 87077; 87186; 87205; 90471; 90662; 97602; G0008; J1642; J3370; J3490; J7050

== ENCOUNTER 2020-09-19 07:33 | Outpatient (CLI) | payer MEDICARE, OTHER ==
[2020-09-19 07:57] LABS: INR-International Normal Ratio 2.4; Prothrombin Time 26.6 sec (12.0-14.7)
== END 2020-09-19 07:34 | disposition home or self-care (01) ==
LOC: BURMANOR 07:33
PROVIDERS: ATTEND Family Medicine
DX: Z51.81 Encounter for therapeutic drug level monitoring (principal); I48.20 Chronic atrial fibrillation, unspecified; Z79.01 Long term (current) use of anticoagulants
CPT/HCPCS: 85610

== ENCOUNTER 2020-09-27 10:00 | Outpatient (CLI) | payer MEDICARE ==
[2020-09-27 10:28] LABS: INR-International Normal Ratio 1.7
== END 2020-09-27 10:01 | disposition home or self-care (01) ==
LOC: BURMANOR 10:00
PROVIDERS: ATTEND Registered Nurse Community Health
DX: I50.9 Heart failure, unspecified (principal)
CPT/HCPCS: 85610

== ENCOUNTER 2021-08-11 15:07 | Outpatient (CLI) | payer MEDICARE, OTHER | END 2021-08-11 15:08 | disposition home or self-care (01) | LOC: BURRAD 15:07 | PROVIDERS: ATTEND Family Medicine | DX: M25.551 Pain in right hip (principal); W19.XXXA Unspecified fall, initial encounter ==

== ENCOUNTER 2021-10-23 14:07 | Outpatient (CLI) | payer MEDICARE, MEDICAID ==
[2021-10-23 14:19] LABS: Bilirubin Negative (Negative); Blood, Urine Negative (Negative); Clarity Clear (Clear); Glucose, Urine (Dipstick) Negative (Negative); Ketone, Urine Negative (Negative); Leukocyte Negative (Negative); Nitrite Negative (Negative); Protein, Urine (Dipstick) Negative (Neg-Trace); Specific Gravity, Urine 1.015 (1.005-1.030); Urobilinogen 0.2 mg/dL (Less than 2)
== END 2021-10-23 14:08 | disposition home or self-care (01) ==
LOC: BURMANOR 14:07
PROVIDERS: ATTEND Registered Nurse Community Health
DX: N18.31 Chronic kidney disease, stage 3a (principal); N39.0 Urinary tract infection, site not specified
CPT/HCPCS: 81003

== ENCOUNTER 2022-01-21 12:36 | Outpatient (CLI) | payer MEDICARE, OTHER ==
[2022-01-21 21:35] LABS: SARS-CoV-2 PCR by NAA Not Detected (NotDetected)
== END 2022-01-21 12:37 | disposition home or self-care (01) ==
LOC: BURMANOR 12:36
PROVIDERS: ATTEND Nurse Practitioner Family
DX: Z20.822 Contact with and (suspected) exposure to COVID-19 (principal)
CPT/HCPCS: U0003; U0005

== ENCOUNTER 2022-01-22 16:12 | Outpatient (CLI) | payer MEDICARE, OTHER | END 2022-01-22 16:13 | disposition home or self-care (01) | LOC: BURMANOR 16:12 | PROVIDERS: ATTEND Nurse Practitioner Family | DX: J09.X2 Influenza due to identified novel influenza A virus with other respiratory manifestations (principal) | CPT/HCPCS: 87804 ==

== ENCOUNTER 2022-02-23 11:40 | Outpatient (CLI) | payer MEDICARE, OTHER ==
[2022-02-23 11:54] LABS: INR-International Normal Ratio 2.1; Prothrombin Time 23.8 sec (12.0-14.7)
== END 2022-02-23 11:41 | disposition home or self-care (01) ==
LOC: BURMANOR 11:40
PROVIDERS: ATTEND Nurse Practitioner Family
DX: I48.20 Chronic atrial fibrillation, unspecified (principal)
CPT/HCPCS: 85610

== ENCOUNTER 2022-03-11 11:01 | Outpatient (CLI) | payer MEDICARE, OTHER ==
[2022-03-11 11:39] LABS: Prothrombin Time 22.7 sec (12.0-14.7)
== END 2022-03-11 11:02 | disposition home or self-care (01) ==
LOC: BURMANOR 11:01
PROVIDERS: ATTEND Nurse Practitioner Family
DX: Z51.81 Encounter for therapeutic drug level monitoring (principal); Z79.01 Long term (current) use of anticoagulants
CPT/HCPCS: 85610

== ENCOUNTER 2023-10-20 13:17 | Outpatient (CLI) | payer MEDICARE ==
[2023-10-20 13:29] LABS: INR-International Normal Ratio 1.4; Prothrombin Time 17.2 sec (12.0-14.7)
== END 2023-10-20 13:18 | disposition home or self-care (01) ==
LOC: BURMANOR 13:17
PROVIDERS: ATTEND Family Medicine
DX: I25.10 Atherosclerotic heart disease of native coronary artery without angina pectoris (principal)
CPT/HCPCS: 85610

== ENCOUNTER 2024-05-22 17:55 | Emergency (ER) | payer MEDICARE ==
[2024-05-22 18:31] LABS: #Basophils 0.1 thou/uL (0.0-0.2); #Eosinphils 0.4 thou/uL (0.0-0.7); #Lymphocytes 1.6 thou/uL (1.20-3.40); #Monocytes 0.7 thou/uL (0.11-0.59); #Neutrophils 8.9 thou/uL (1.40-6.50); %Basophils 0.9 % (0.0-1.0); %Eosinophils 3.4 % (0.0-10.0); %Lymphocytes 13.8 % (21.0-51.0); %Monocytes 5.9 % (0.0-10.0); Hematocrit 36.7 % (42.0-52.0); Hemoglobin 12.7 g/dL (14.0-18.0); Mean Corpuscular HGB CONC 34.5 g/dL (32.0-36.0); Mean Corpuscular Hemoglobin 29.8 pg (27.0-31.0); Mean Corpuscular Volume 86.5 fl (78.0-98.0); Mean Platelet Volume 6.7 fL (7.4-10.4); Platelet Count 374 10x3/uL (130-400); RBC Distribution Width 13.6 % (11.5-14.5); Red Blood Cell (RBC) Count 4.24 mill/uL (4.70-6.10); White Blood Cell (WBC) Count 11.7 10x3/uL (4.8-10.8)
[2024-05-22 18:57] LABS: ALT (SGPT) 32 U/L (8-55); AST (SGOT) 31 U/L (5-34); Albumin 2.9 g/dL (3.4-4.8); Alkaline Phosphatase 96 U/L (40-110); Anion Gap 16 mmol/L (10-20); BUN (Urea Nitrogen) 15 mg/dL (8.4-25.7); Bilirubin, Total 0.7 mg/dL (0.2-1.2); Calc. Creatinine Clearance 0 mL/min (70-130); Calcium 8.6 mg/dL (7.8-10.44); Carbon Dioxide 25 mmol/L (23-31); Chloride 98 mmol/L (98-107); Estimated GFR 72; Globulin 3.2 g/dL (2.4-3.5); Glucose 88 mg/dL (83-110); Magnesium 1.7 mg/dL (1.6-2.6); Potassium 4.1 mmol/L (3.5-5.1); Protein, Total 6.1 g/dL (5.8-8.1); Sodium 135 mmol/L (136-145)
== END 2024-05-22 20:16 ==
LOC: BURERS 17:55
DX: R62.7 Adult failure to thrive (principal); I48.91 Unspecified atrial fibrillation; I13.0 Hypertensive heart and chronic kidney disease with heart failure and stage 1 through stage 4 chronic kidney disease, or unspecified chronic kidney disease; N18.30 Chronic kidney disease, stage 3 unspecified; I50.9 Heart failure, unspecified
CPT/HCPCS: 70450; 71045; 80053; 83735; 85025